=== PATIENT | female | born 1960 | race Caucasian/White ===

== ENCOUNTER → 2016-11-09 | Outpatient (CLI) | payer MEDICARE, MEDICAID ==
[~2016-11-09] MED LIST: ALEVE220 MG PO; ALLOPURINOL100 MG PO; BETASERON 0.3 M1 KIT MR; BETASERON0.3 MG SC; FUROSEMIDE 40MG40 M1 PO; JANUVIA25 MG PO; LEVAQUIN 750 M750 MG PO; LISINOPRIL10 MG PO; METOPROLOL SUCC50 M2 PO; POTASSIUM CHLO10 MEQ PO; PRAMIPEXOLE D0.75 MG PO; PROTONIX 40MG T40 MG PO; VITAMIN D50000 I1 PO; WARFARIN SODIUM5 MG PO
[2016-11-09 20:30] LABS: BUN 20 mg/dL (7-18)
[2016-11-09 21:00] LABS: GFR (ESTIMATED) 46 ML/MIN (59-)
== END ==
LOC: LAB 17:51
PROVIDERS: Internal Medicine Adolescent Medicine
DX: Z86.711 Personal history of pulmonary embolism (principal); Z87.01 Personal history of pneumonia (recurrent)

== ENCOUNTER 2016-11-12 17:14 | Inpatient (IN) | payer MEDICARE, MEDICAID ==
[~2016-11-12] VITALS: Ht 157.5 cm; Wt 145.8 kg
[2016-11-12] VITALS (12 sets, daily range): BP systolic 84–120; BP diastolic 42–96
[~2016-11-12 17:14] MED LIST changes: -ALEVE220 MG PO; -ALLOPURINOL100 MG PO; -BETASERON0.3 MG SC; -JANUVIA25 MG PO; -LEVAQUIN 750 M750 MG PO; +METOPROLOL SUCC50 M1 PO; -METOPROLOL SUCC50 M2 PO; -PROTONIX 40MG T40 MG PO; -VITAMIN D50000 I1 PO
--- OUTSIDE RECORDS SUMMARY | 2016-11-12 17:17 | External Medical Summary Rpt ---
Author Author SHENG Address Unknown Phone [email or web address] Purpose Continuity of Care Document - 09-10-2016 through 2016
--- OUTSIDE RECORDS SUMMARY | 2016-11-12 17:17 | External Medical Summary Rpt ---
Author Author SHENG Address Unknown Phone [email or web address] Purpose Continuity of Care Document - 09-10-2016 through 2016
--- OUTSIDE RECORDS SUMMARY | 2016-11-12 17:18 | External Medical Summary Rpt ---
Demographics Preferred Language Belizean Marital Status Unknown Worship Affiliation Unknown Race Unknown Ethnic Group Unknown Author Author SHENG Address Unknown Phone Immunization No patient found.
--- OUTSIDE RECORDS SUMMARY | 2016-11-12 17:18 | External Medical Summary Rpt ---
Author Author SHENG Address Unknown Phone [email or web address] Purpose Continuity of Care Document - through 2016
--- OUTSIDE RECORDS SUMMARY | 2016-11-12 17:18 | External Medical Summary Rpt ---
Author Author [employer], [employer] Organization [employer] Address Unknown Phone Unavailable Results Urea nitrogen [Mass/volume] in Serum or Plasma Observa Value Referen Units Interpr Notes Date tion ce etation Range Urea 7 - 18 mg/dL High No Nov 09 nitrogen informati 2016 [Mass/vol on in ume] in source Serum or data Plasma CREATININE Observa Value Referen Units Interpr Notes Date tion ce etation Range Creatinin 0.55 - mg/dL High No Nov 09 e 1.02 informati 2016 [Mass/vol on in ume] in source Serum or data Plasma Estimated 59- ML/MIN Low REFERENCE Nov 09 RANGE: 2016 glomerula >60 r ML/MIN/1. filtratio 73 SQUARE n rate METERSIf (GF this patient is -A merican, then multiply theresult by 1.210. INR in Blood by Coagulation assay Observa Value Referen Units Interpr Notes Date tion ce etation Range INR in 0.9 - 1.1 No High INDICATIO Nov 09 Blood by informati N 2016 Coagulati on in on assay source INR data RANGETHER APY FOR DVT, PE, ATRIAL FIB; 2.0 - 3.0PROPHY LAXIS FOR VTETHERAP Y FOR MECHANICA L HEART 2.5 - 3.5VALVE; PREVENTIO N OF SYSTEMICE MBOLISM SECONDARY TO AMI Prothromb 9.4 - SECONDS High No Nov 09 in time 11.8 informati 2016 (PT) in on in Platelet source poor data plasma by Coagulati on assay INR in Blood by Coagulation assay Observa Value Referen Units Interpr Notes Date tion ce etation Range INR in 0.9 - 1.1 No High INDICATIO Oct 28 Blood by informati N 2016 Coagulati on in 12:08 PM on assay source INR data RANGETHER APY FOR DVT, PE, ATRIAL FIB; 2.0 - 3.0PROPHY LAXIS FOR VTETHERAP Y FOR MECHANICA L HEART 2.5 - 3.5VALVE; PREVENTIO N OF SYSTEMICE MBOLISM SECONDARY TO AMI Prothromb 9.4 - SECONDS High No Oct 27 in time 11.8 informati 2017 (PT) in on in 12:08 PM Platelet source poor data plasma by Coagulati on assay Urea nitrogen [Mass/volume] in Serum or Plasma Observa Value Referen Units Interpr Notes Date tion ce etation Range Urea 7 - 18 mg/dL High No Sep 10 nitrogen informati 2016 [Mass/vol on in 10:32 AM ume] in source Serum or data Plasma CREATININE Observa Value Referen Units Interpr Notes Date tion ce etation Range Creatinin 0.55 - mg/dL Normal No Sep 9 e 1.02 informati 2016 [Mass/vol on in 10:32 AM ume] in source Serum or data Plasma Estimated 59- ML/MIN Low REFERENCE Sep 10 RANGE: 2017 glomerula >60 10:32 AM r ML/MIN/1. filtratio 73 SQUARE n rate METERSIf (GF this patient is -A merican, then multiply theresult by 1.210.
--- OUTSIDE RECORDS SUMMARY | 2016-11-12 17:18 | External Medical Summary Rpt ---
Author Author SHENG Address Unknown Phone [email or web address] Purpose Continuity of Care Document - through 2016
--- OUTSIDE RECORDS SUMMARY | 2016-11-12 17:18 | External Medical Summary Rpt ---
Demographics Preferred Language Guyanese Marital Status Unknown Caodaism Affiliation Unknown Race Unknown Ethnic Group Unknown Author Author SHENG Address Unknown Phone Immunization No patient found.
[2016-11-12] MEDS ORDERED: JANUVIA25 MG PO (18:29)
[2016-11-12 18:30] LABS: LYMPH # 0.5 K/mm3 (0.7-4.5); LYMPH % 5.8 % (10-50.0)
[2016-11-12] MEDS ORDERED: ALLOPURINOL100 MG PO (18:30)
[2016-11-12] MEDS ORDERED: VITAMIN D50000 I1 PO (18:32)
[2016-11-12] MEDS ORDERED: ALEVE220 MG PO (18:33)
[2016-11-12 18:35] LABS: HEMOGLOBIN 7.2 g/dL (12.2-16.2)
[2016-11-12 19:04] LABS: NEUTROPHILS 89 % (42-76)
[2016-11-12 20:27] LABS: ABO BLOOD TYPE O; RH BLOOD TYPE POSITIVE
[2016-11-12 20:28] LABS: ANTIHUMAN GLOB CROSSMATCH COMPAT
--- NOTE | 2016-11-12 20:57 | HISTORY AND PHYSICAL REPORT ---
Demographics: Admit date: 11/12/16 Chief complaint: Shortness of air/cough PRIMARY DIAGNOSIS: PNEUMONIA Allergies: Coded Allergies: gabapentin (From Neurontin) (04/01/15) magnesium (04/01/15) sulfamethoxazole (From Bactrim) (04/01/15) trimethoprim (From Bactrim) (04/01/15) History of present illness: History of present illness: 56-year-old white female with multiple sclerosis, morbid obesity, and mobility issues and recurrent pulmonary embolism currently on warfarin therapy, came in the office a couple days ago with increasing shortness of air and coughing. She' s been on a couple of rounds of antibiotics, chest x-ray and labs were done and were abnormal. CT scan was done of the lung showing ill-defined patchy infiltrate with possible bronchial thickening worrisome for possible neoplasm versus infection effect. she did not improve over the past couple of days and she is hospitalized for intravenous antibiotics given failure of 2 rounds of antibiotic therapy to help her shortness of air and infection with lobar pneumonia. Past medical history: Family HX Diabetes Yes CAD No Hypertension Yes Hyperlipidemia Yes Cancer No TB No Immunization HX DT/Tetanus 5-10 Years Ago Pneumonia Received In Past TB Test in last year Yes Result Negative General Angina: No UT: No Hypertension? Yes Hyperlipidemia? No CHF? No COPD? No Asthma? No Hernia? No CVA? No Seizures? No Diabetes? No UTI? No Stones? No GB Disease: Yes Hepatitis? No Sickle Cell Disease? No Cataracts? No Glaucoma? No MRSA? No TB? No Cancer? No More? Yes Additional hx: MS Past Surgical HX Previous Surgery?Y UTERINE ABLATION TOTAL HYSTERECTOMY LEFT ELBOW Current home meds: Reported Medications Sitagliptin Phosphate (Januvia 25MG) 25 MG PO DAILY-DM Allopurinol 100 MG PO DAILY ERGOCALCIFEROL (VITAMIN D2) (Vitamin D2) 50,000 IUNITS PO QTHUR Naproxen Sodium (Aleve) 220 MG PO PRN PRN PAIN Furosemide 40 MG PO DAILY #30 Lisinopril 10 MG PO DAILY #30 Metoprolol Succinate 50 MG PO DAILY #30 Warfarin Sodium 5 MG PO DAILY #30 Interferon Beta-1B/Sodium Ch (Betaseron 0.3 Mg-0.54%) 1 KIT MR QOD PRAMIPEXOLE DI-HCL (Pramipexole Dihydrochloride) 0.75 MG PO DAILY #30 Potassium Chloride (POTASSIUM CHLORIDE 10mEq CAP) 10 MEQ PO DAILY #60 Social Hx: Smoking HX Type Cigarettes Packs/day N/A Are you/the child exposed to second-hand smoke: No Alcohol Alcohol: No Hx of Drug Use Drug Use? No Patien't marital status is single Patient's support system is good Review of systems: Constitutional malaise, weakness. No: fever. Respiratory cough, shortness of breath, SOB with excertion. Cardiovascular No chest pain Gastrointestinal/Abdominal No no symptoms reported Genitourinary No: no symptoms reported. Musculoskeletal joint pain, joint swelling, muscle pain, muscle stiffness, neck pain. Neurological Yes: tingling, tremors, weakness. Exam: Lab data for last 24 hours: Laboratory Tests 11[place]12/162049: [facility] [place]OD UNIT RELEASE 11/12/160: Antibody Screen NEGATIVE, Miscellaneous Test POSITIVE 11/12/16 1800: Sodium 135 L, Potassium 4.4, Chloride 101, Carbon Dioxide 26, BUN 46 H, Creatinine 1.5 H, Estimated Creat Clear 94, Estimated GFR (MDRD) 36 L, Glucose 175 H, Calcium 8.2 L, Total Bilirubin 0.7, AST 23, ALT 24, Alkaline Phosphatase 99, Total Protein 6.6, Albumin 3.2 L, Globulin 3.4 H, Albumin/ Globulin Ratio 0.9 L, PT 38.8 H, INR 3.55 H, WBC 7.8, RBC 2.19 L, Hgb 7.2 *L , Hct 22.2 *L, MCV 101.3 H, RDW 19.2 H, Plt Count 178, MPV 8.1, Gran % 86.3 H , Gran # 6.7, Total Counted 100, Lymphocytes % 5.8 L, Monocytes % 5.4, Eosinophils % 1.9, Basophils % 0.5, Neutrophils 89 H, Band Neutrophils 1, Lymphocytes (Manual) 5 L, Lymphocytes # 0.5 L, Monocytes (Manual) 3, Monocytes # 0.4, Eosinophils # 0.2, Basophils # 0.0, Promyelocytes 2, Platelet Estimate NORMAL, Anisocytosis 2+, Macrocytosis 1+, PUBS MCHC 32.4, MCH 32.8 H, Mycoplasma pneumon IgM NON-REACTIVE Microbiology 08/11 1800 BLOOD: Anaerobic Blood Culture - RECD 11/12 1800 BLOOD: Aerobic Blood Culture - RECD 11/12 1800 BLOOD: Anaerobic Blood Culture - RECD 11/12 1800 BLOOD: Aerobic Blood Culture - RECD Admission vital signs: 1ST Vital Signs Result Date Time Pulse Ox 89 11/12 175 O2 Delivery ROOM AIR 11/12 175 O2 Flow Rate 2 11/12 1750 B/P 106/48 11/12 1808 Temp 98.2 11/12 1808 Pulse 74 11/12 180 Resp 18 11/12 180 Additional information: Exam is compromised by patient's morbid obesity. She is pleasant and talkative, cranial nerves are clear. Heart rate regular without murmurs. Lungs have clear bases, right side has rhonchi but no crackles or wheezing. Abdomen is obese, soft. She has obesity-related edema but no pitting edema or skin breakdown Plan: Problem List 1. Pneumonia, lobar 2. Anemia 3. Pulmonary mass Plan: patient with clear infiltrate with worrisome features. Admit for broad-spectrum antibiotic IV coverage, pulmonary toilet. Hopefully we can get a sputum culture. Anemia noted above in lab section. Questionable etiology. Guaiac stools. Transfuse given shortness of air and significant anemia values. at 2056
[2016-11-13] VITALS (18 sets, daily range): BP systolic 89–129; BP diastolic 36–68
[2016-11-13 06:52] LABS: LYMPH # 0.6 K/mm3 (0.7-4.5); LYMPH % 7.5 % (10-50.0)
--- NOTE | 2016-11-13 07:57 | ACUTE CARE PROGRESS NOTE (QUA) ---
Progress Notes Subjective Date 11/13/16 Time 0756 Note Feels slightly better after blood transfusion yesterday. Less shortness of air. Able to cough up a fairly substantial sputum specimen yesterday which is being processed in the lab. Alert. Pleasant. Lungs are clear with rhonchi in the middle lung field. Heart rate regular. Objective Findings Last VS-Temp:97.9 B/P:114/57 Pulse:92 Resp:20 SaO2:92 OXYGEN Last weight lbs:321 oz:8 K.832 Method:Stated Assessment/Plan Problem List 1. Pneumonia, lobar 2. Anemia 3. Pulmonary mass Patient condition Improving Plan: continue current care, check chest x-ray tomorrow. Await sputum culture. This inpt stay is expected to cross 2 MNs from start of care Yes at 0757
--- NOTE | 2016-11-13 14:31 | PHARMACY CLINIC NOTE ---
See Addendum Patient Demographics Patient Demographics Admission date: 11/12/16 Date: 11/13/16 Time: 1431 Allergies Coded Allergies: gabapentin (From Neurontin) (04/01/15) magnesium (04/01/15) sulfamethoxazole (From Bactrim) (04/01/15) trimethoprim (From Bactrim) (04/01/15) HEIGHT- FT: 5 IN: 2.00 K.832 VTE General Information Labs: Laboratory Tests 11/13 11/12 0555 1800 Coagulation PT (9.4 - 11.8 SECONDS) 38.8 H INR (0.9 - 1.1) 3.55 H Hematology Hgb (12.2 - 16.2 g/dL) 9.0 L 7.2 *L Hct (37.0 - 47.0 %) 26.2 L 22.2 *L Plt Count (142 - 424 K/mm3) 147 178 Disclaimer The following section includes nursing documentation that has been pulled in for pharmacy review. Patient's VTE score: 3 Patient's VTE Risk: LOW RISK Clinical trial participant? No VTE prophylaxis NQF [id number] VTE prophylaxis ordered? Yes Type of prophylaxis/treatment: CHALINO at 1431
[2016-11-13] MEDS ORDERED: BETASERON0.3 MG SC (14:40)
[2016-11-13 15:29] LABS: STOOL OCCULT BLOOD POSITIVE (NEG)
[2016-11-13 20:04] LABS: STOOL OCCULT BLOOD POSITIVE (NEG)
[2016-11-14] VITALS (8 sets, daily range): BP systolic 110–128; BP diastolic 51–69
[2016-11-14 06:15] LABS: STOOL OCCULT BLOOD POSITIVE (NEG)
--- NOTE | 2016-11-14 07:47 | RADIOLOGY REPORT PS360 ---
CHEST(2 VIEWS-NOT PORTABLE) HISTORY: Follow-up pneumonia f/u pneumonia from ct scan ORDERING PHYSICIAN: Dre Montgomery MD PATIENT AGE: 56 years COMPARISON: 10/28/2016 chest x-ray and 11/10/2016 CT scan FINDINGS: Mild cardiomegaly without failure. ASD occlusion device noted. There remains increased interstitial markings in the right upper lobe overall not significantly changed. Increased markings are present also in the right lower lobe and may be due to developing pneumonia or atelectasis. The left lung is clear. IMPRESSION: 1. Persistent interstitial changes in the right upper lobe suggesting underlying inflammation/pneumonia with some increase interstitial changes in the right lower lung zone. 2. Cardiomegaly
--- NOTE | 2016-11-14 08:19 | ACUTE CARE PROGRESS NOTE (QUA) ---
Progress Notes Subjective Date 11/14/16 Time 0816 Note Overall patient is feeling pretty good and reports that she's feeling better with better breathing. Labs reviewed, blood counts stable. Unfortunately fecal occult blood testing is positive x3 samples. Exam reveals lungs with rhonchi as previously noted, heart rate regular. A slight increase in her peripheral edema today. Patient is pleasant alert Objective Findings Last VS-Temp:98.4 B/P:121/58 Pulse:85 Resp:18 SaO2:93 ROOM AIR Last weight lbs:321 oz:8 K.832 Method:Stated Assessment/Plan Problem List 1. Pneumonia, lobar 2. Anemia 3. Pulmonary mass 4. Positive occult stool blood test Patient condition Improving Plan: several complex problem for this patient: 1. Pneumonia-improving. Continue intravenous levofloxacin therapy. 2. anemia-responded to transfusion-warfarin has been stopped and we will watch carefully. I am very concerned about her warfarin and NSAID use and now positive fecal occult blood testing with anemia. Surgical consultation to evaluate for EGD/colonoscopy. 3. History of pulmonary embolism-one time event-associated with orthopedic fracture and repair. I think she can safely stop her warfarin at this point especially given her GI bleeding and need for workup of this problem. 4. Slight increased peripheral edema. IV Lasix today. This inpt stay is expected to cross 2 MNs from start of care Yes at 0819
--- NOTE | 2016-11-14 10:42 | SURGEON PROGRESS NOTE ---
Subjective data Subjective data: SHEREEN SOLORIO is a 56 F .Patient denies complaint of nausea and vomitting.She reports her last pain level as 0 on a 0-10 pain scale. Patient feels much better. Some bowel movment. Hungry. Assessment findings Assessment Exam General appearance: normal appearance, alert ABD: soft, no tenderness Patient plan Plan: Advance diet Additional data: Full liquids today. Repeat imaging tomorrow. at 1042
--- NOTE | 2016-11-14 11:01 | CONSULT NOTE ---
Standard Demographics Patient Demo Date of Consultation: 11/14/16 Referring Provider: Dre Montgomery MD Reason for Consultation: anemia PRIMARY DIAGNOSIS: PNEUMONIA Allergies: Coded Allergies: gabapentin (From Neurontin) (04/01/15) magnesium (04/01/15) sulfamethoxazole (From Bactrim) (04/01/15) trimethoprim (From Bactrim) (04/01/15) History of Present Illness Chief Complaint: Shortness of air History of Present Illness: Patient is a 56-year-old white female from [place] with history of multiple sclerosis, morbid obesity, DVT with recurrent pulmonary embolism on chronic warfarin anticoagulation therapy admitted a couple of days ago due to increasing shortness of air and pneumonia. Evaluation of blood work at the time of admission revealed appreciable anemia with hemoglobin of 7.2 and hematocrit of 22.2 percent. Patient was transfused. She is undergone stool guaiac which was positive 3. She states that her first bowel movement upon admission was somewhat dark. Denies any history of ulcer disease. She states that she may have had a colonoscopy many years ago in [place]. Denies rectal bleeding. Past Medical History Reports: hypertension, obesity. Denies: peptic ulcer disease. Surgical History Previous Surgery?Y UTERINE ABLATION TOTAL HYSTERECTOMY LEFT ELBOW Allergies Coded Allergies: gabapentin (From Neurontin) (04/01/15) magnesium (04/01/15) sulfamethoxazole (From Bactrim) (04/01/15) trimethoprim (From Bactrim) (04/01/15) Medications: Reported Medications Sitagliptin Phosphate (Januvia 25MG) 25 MG PO DAILY-DM Allopurinol 100 MG PO DAILY ERGOCALCIFEROL (VITAMIN D2) (Vitamin D2) 50,000 IUNITS PO QTHUR Naproxen Sodium (Aleve) 220 MG PO PRN PRN PAIN Interferon Beta-1B (Betaseron) 0.3 MG SC QOD #14 MG Furosemide 40 MG PO DAILY #30 Lisinopril 10 MG PO DAILY #30 Metoprolol Succinate 50 MG PO DAILY #30 Warfarin Sodium 5 MG PO DAILY #30 PRAMIPEXOLE DI-HCL (Pramipexole Dihydrochloride) 0.75 MG PO DAILY #30 Potassium Chloride (POTASSIUM CHLORIDE 10mEq CAP) 10 MEQ PO DAILY #60 Smoking Hx Tobacco: Yes Smoker: Former Smoker Type: Cigarettes Packs/day: N/A Are you/the child exposed to second-hand smoke: No Alcohol Alcohol: No Hx of Drug Use Drug Use? No Review of Systems Constitutional No: chills. Skin No: contusions. Immune/allergy No: anaphalaxis. Eyes No: vision loss. ENT No: hearing loss. Respiratory Positive for: shortness of air. Cardiovascular No: chest pain. GI Positive for: melena. No: abdomen, hematochezia. (female) No: hematuria. Musculoskeletal No: joint pain. Heme No: bruising. Endocrine No: cold intolerance. Neurological No: change in LOC. Physical Exam Exam General appearance no acute distress Respiratory decreased breath sounds Cardiovascular normal heart sounds Abdomen non-tender Plan Plan: Patient's warfarin has been discontinued. Given her history consistent with melana upper gastrointestinal blood loss source may be a possibility. Would tentatively plan for EGD and a couple of days as initial investigation. In the interim would plan to treat with proton pump inhibitors regardless. Colonoscopy would be indicated at some point pending the findings on upper endoscopy. at 1101
[2016-11-15 04:30] VITALS: BP 114/56
[2016-11-15 07:04] LABS: HEMOGLOBIN 8.8 g/dL (12.2-16.2); LYMPH # 0.6 K/mm3 (0.7-4.5); LYMPH % 7.7 % (10-50.0)
--- NOTE | 2016-11-15 07:08 | ACUTE CARE PROGRESS NOTE (QUA) ---
Progress Notes Subjective Date 11/15/16 Time 0708 Note Overall patient feels better, no complaints through the night. Lungs are clear. Abdomen soft, heart rate regular. Patient in good spirits. Objective Findings Last VS-Temp:97.6 B/P:114/56 Pulse:75 Resp:18 SaO2:90 ROOM AIR Last weight lbs:321 oz:8 K.832 Method:Stated Assessment/Plan Problem List 1. Pneumonia, lobar 2. Anemia 3. Pulmonary mass 4. Positive occult stool blood test Patient condition Improving, await surgical consultation for EGD. Overall from a lung standpoint patient improved. This inpt stay is expected to cross 2 MNs from start of care Yes at 0708
[2016-11-15 07:15] LABS: STOOL OCCULT BLOOD POSITIVE (NEG)
--- NOTE | 2016-11-15 07:56 | SURGEON PROGRESS NOTE ---
Subjective data Subjective data: SHEREEN SOLORIO is a 56 F .Patient denies complaint of nausea and vomitting.She reports her last pain level as 0 on a 0-10 pain scale. Patient is without complaints. No clinical bleeding. Assessment findings Assessment Exam General appearance: normal appearance ABD: soft Patient plan Plan: tentativel y plan EGD tomorrow at 0750
[2016-11-15 08:00] VITALS: BP 112/61
--- NOTE | 2016-11-15 08:03 | ACUTE CARE PROGRESS NOTE (QUA) ---
Progress Notes Subjective Date 11/15/16 Time 0802 Assessment/Plan Problem List 1. Pneumonia, lobar 2. Anemia 3. Pulmonary mass 4. Positive occult stool blood test This inpt stay is expected to cross 2 MNs from start of care Yes Antibiotic Stewardship (2) Current Culture Results Microbiology 11/13 0128 SPUTUM: Organism ID (Sequencing 2)(GONZALO) - CAN Cancelled: INCLUDED WITH SPUTUM C/S 11/13 109 SPUTUM: Sputum Culture - COMP 11/13 109 SPUTUM: Gram Stain - COMP 11/12 1800 BLOOD: Anaerobic Blood Culture - RECD 11/12 1800 BLOOD: Aerobic Blood Culture - RECD Infxn that will respond? Yes Right drug,dose,and route? Yes More targeted antbx? No at 0802
[2016-11-15 12:00] VITALS: BP 112/70
[2016-11-15 16:00] VITALS: BP 107/60
[2016-11-15 20:06] VITALS: BP 125/55
[2016-11-15 20:30] VITALS: BP 125/55
[2016-11-16] VITALS (11 sets, daily range): BP systolic 94–135; BP diastolic 42–87
[2016-11-16 06:52] LABS: HEMOGLOBIN 8.6 g/dL (12.2-16.2); LYMPH # 0.4 K/mm3 (0.7-4.5); LYMPH % 6.3 % (10-50.0)
--- NOTE | 2016-11-16 07:23 | ACUTE CARE PROGRESS NOTE (QUA) ---
Progress Notes Subjective Date 11/16/16 Time 0721 Note Patient overall feels better, states she she is doing "pretty good." Lungs are clear, good air movement. Patient's pleasant, alert. Moves well. INR this morning 1.45. Objective Findings Last VS-Temp:97.4 B/P:135/87 Pulse:69 Resp:18 SaO2:92 ROOM AIR Last weight lbs:321 oz:8 K.832 Method:Stated Assessment/Plan Problem List 1. Pneumonia, lobar 2. Anemia 3. Pulmonary mass 4. Positive occult stool blood test Patient condition Improving Plan: continue current care, hopefully EGD can be done today. Possible discharge after this procedure for outpatient colonoscopy. We will continue to hold warfarin. Pneumonia is improving nicely. Discharge home today, hopefully, on by mouth Levaquin. This inpt stay is expected to cross 2 MNs from start of care Yes Antibiotic Stewardship (2) Infxn that will respond? Yes Right drug,dose,and route? Yes More targeted antbx? No at 0722
--- NOTE | 2016-11-16 12:05 | Operative Note ---
Endoscopy Report Date: 11/16/16 Preoperative diagnosis: Anemia, gastrointestinal blood loss Procedure Type of procedure: Esophagogastroduodenoscopy with biopsy Indications: 56-year-old obese female on chronic warfarin anticoagulation therapy for prior history of pulmonary embolism. Admitted with pneumonia and found to be the make [facility] blood work with Hemoccult positive stool 3. Surgery was consult for upper endoscopy. Once her INR normalized plan was for upper endoscopy. Consent was obtained and patient was taken to same-day surgery endoscopy procedure room. She was positioned in a lateral decubitus position. Adequate intravenous sedation was achieved with anesthesia titration of propofol. Olympus endoscope was inserted via the oropharynx. Esophagus appeared normal. Stomach was cannulated and insufflated. She had some diffuse moderate gastritis with several punctate areas which had shown evidence of minor oozing but no active bleeding. Retroflexion revealed a small hiatal hernia. Pylorus was somewhat stenotic and the endoscope was advanced through the pylorus. The just past the pylorus within the duodenal bulb there was a moderately large ulcer with exudate in the base. No evidence of any adherent clot or visible vessel. Endoscope was advanced into the distal duodenum which appeared unremarkable. Endoscope was withdrawn into the [facility] in and antral mucosal biopsy was obtained for CLOtest for H. pylori. Endoscope was withdrawn. Findings 1. Duodenal Ulcer 2. Gastritis Follow-Up Follow-Up: Would continue high-dose therapeutic proton pump inhibitors and limit nonsteroidal anti-inflammatory drugs. Treat H. pylori if positive. Will tentatively plan for a follow-up upper endoscopy in approximately 8-10 weeks along with possible colonoscopy for completeness. at 1204
--- NOTE | 2016-11-16 12:05 | Operative Note ---
Endoscopy Report Date: 11/16/16 Preoperative diagnosis: Anemia, gastrointestinal blood loss Procedure Type of procedure: Esophagogastroduodenoscopy with biopsy Indications: 56-year-old obese female on chronic warfarin anticoagulation therapy for prior history of pulmonary embolism. Admitted with pneumonia and found to be the make [facility] blood work with Hemoccult positive stool 3. Surgery was consult for upper endoscopy. Once her INR normalized plan was for upper endoscopy. Consent was obtained and patient was taken to same-day surgery endoscopy procedure room. She was positioned in a lateral decubitus position. Adequate intravenous sedation was achieved with anesthesia titration of propofol. Olympus endoscope was inserted via the oropharynx. Esophagus appeared normal. Stomach was cannulated and insufflated. She had some diffuse moderate gastritis with several punctate areas which had shown evidence of minor oozing but no active bleeding. Retroflexion revealed a small hiatal hernia. Pylorus was somewhat stenotic and the endoscope was advanced through the pylorus. The just past the pylorus within the duodenal bulb there was a moderately large ulcer with exudate in the base. No evidence of any adherent clot or visible vessel. Endoscope was advanced into the distal duodenum which appeared unremarkable. Endoscope was withdrawn into the [facility] in and antral mucosal biopsy was obtained for CLOtest for H. pylori. Endoscope was withdrawn. Findings 1. Duodenal Ulcer 2. Gastritis Follow-Up Follow-Up: Would continue high-dose therapeutic proton pump inhibitors and limit nonsteroidal anti-inflammatory drugs. Treat H. pylori if positive. Will tentatively plan for a follow-up upper endoscopy in approximately 8-10 weeks along with possible colonoscopy for completeness. at 1207
--- NOTE | 2016-11-16 12:19 | Anesthesia Record ---
Anesthesia Record Part I Total IV fluids: 250 EBL (ml): 0 Urine Output: 0 B/P: 116/56 % SaO2: 92 Pulse: 76 Resps: 18 Temp: 98.2 Patient is: Nasal O2 Stable to PACU at: 1209 at 1219
[2016-11-16] MEDS ORDERED: LEVAQUIN 750 M750 MG PO (13:54)
[2016-11-16] MEDS ORDERED: PROTONIX 40MG T40 MG PO (13:54)
--- NOTE | 2016-11-16 14:05 | DISCHARGE SUMMARY STANDARD ---
Demographics Admit date: 11/12/16 Discharge date: 11/16/16 History of present illness History of present illness 56-year-old white female with multiple sclerosis, morbid obesity, and mobility issues and recurrent pulmonary embolism currently on warfarin therapy, came in the office a couple days ago with increasing shortness of air and coughing. She' s been on a couple of rounds of antibiotics, chest x-ray and labs were done and were abnormal. CT scan was done of the lung showing ill-defined patchy infiltrate with possible bronchial thickening worrisome for possible neoplasm versus infection effect. she did not improve over the past couple of days and she is hospitalized for intravenous antibiotics given failure of 2 rounds of antibiotic therapy to help her shortness of air and infection with lobar pneumonia. Hospital Course Hospital Course: Patient was admitted to acute care for IV antibiotics and further evaluation. She was started on Levaquin and Zosyn. Her hemoglobin was found to be low at 7 on admission with an INR of 3.5. Her Coumadin was held and she was transfused with 2 units of packed red blood cells. Surgery was consulted for evaluation. Occult blood in stool was positive x3. Her hemoglobin has remained stable since her transfusion. INR normalized today and patient was taken for EGD which showed a moderate duodenal ulcer and gastritis with no active bleeding. See endoscopy report for complete details. Patient is tolerating oral intake well. Shortness of breath and cough improved on IV antibiotics. Discharge home on high-dose PPI and Levaquin therapy. See medication reconciliation for complete list Complete blood count and complete metabolic panel on Tuesday. Follow-up with myself in the office at that time. Continue to hold Lasix due to elevated creatinine which has improved throughout her stay. No NSAIDs. FU with Dr. Whitfield in one week. Discharge diagnoses Problem List 1. Pneumonia, lobar 2. Anemia 3. Pulmonary mass 4. Positive occult stool blood test Medications Medications: Discharge meds are as noted. Follow up Follow up in office in: 3 DAYS with: KAYLI MONTEIRO APRN at [phone]
== END 2016-11-16 15:05 | disposition home or self-care (01) | DRG 194 ==
LOC: 2ND 17:14
PROVIDERS: Internal Medicine Adolescent Medicine; Surgery
PROC: 0DB68ZX Excision of Stomach, Via Natural or Artificial Opening Endoscopic, Diagnostic (ICD-10-PCS; principal; 2016-11-16 12:00)
DX: J18.9 Pneumonia, unspecified organism (principal); I27.82 Chronic pulmonary embolism; K26.9 Duodenal ulcer, unspecified as acute or chronic, without hemorrhage or perforation; I10 Essential (primary) hypertension; Z79.01 Long term (current) use of anticoagulants; G35 Multiple sclerosis; R91.8 Other nonspecific abnormal finding of lung field; D64.9 Anemia, unspecified; K29.70 Gastritis, unspecified, without bleeding
CPT/HCPCS: G0328; J2543; P9016

== ENCOUNTER 2016-11-18 10:51 | Inpatient (IN) | payer MEDICARE, MEDICAID ==
[~2016-11-18] VITALS: Ht 157.5 cm; Wt 151.0 kg
[~2016-11-18 10:51] MED LIST changes: +ALEVE220 MG PO; +ALLOPURINOL100 MG PO; +BETASERON0.3 MG SC; +JANUVIA25 MG PO; +LEVAQUIN 750 M750 MG PO; +PROTONIX 40MG T40 MG PO; +VITAMIN D50000 I1 PO
--- OUTSIDE RECORDS SUMMARY | 2016-11-18 10:54 | External Medical Summary Rpt ---
Author Author , SHENG PATRICIO Address Unknown Phone [email or web address] Care Team Providers Care Coal Passer Name Role Phone [facility] Unavailable Unavailable [facility] # Unavailable Unavailable [id number], [facility] # [id number] Purpose Continuity of Care Document - 2010 through 2016 Problems Code Diagnosis DOS Provider Status 7905 OTHER 09-21-2010 CT MEDICAL NONSPECIFIC SERV ABNORMAL [facility] SERUM ENZYME LEVELS 7934 NONSPECIFIC 09-21-2010 CT MEDICAL ABN SERV FINDING RAD [facility] & OTH EXAM GI TRACT [address] MEDICAL PAIN RIGHT SERV UPPER [facility] QUADRANT S42.402A UNSP FRACTURE OF LOWER END OF LEFT HUMERUS, INIT FOR CLOS FX T14.8 OTHER INJURY OF UNSPECIFIED BODY REGION Medications Na ND Rx Da Fi Fi Am Da Di Ph RX Ph St me C No te ll ll ou ys ag ar # ys at rm s nt no ma ic us Or Da si cy ia de te s n re d FU 63 10 10 0 90 90 71 AH Ac RO 30 -0 -0 .0 L- 37 ME ti SE 40 4- 4- 00 MA 55 D ve [place] 62 20 20 RT 6 AD DE 51 11 11 NA 0 PH N 40 AR MA MG CY # TA BL 10 ET 05 91 ME 68 05 08 1 90 45 WA 71 AH Ac TO 64 -0 -1 .0 L- 18 ME ti LA 50 4- 8- 00 MA 27 D ve OL 19 20 20 RT 6 AD OL 05 11 11 NA 9 PH N TA AR RT MA RA CY TE # 50 10 05 MG 91 TA B Results Labs Lab Lab Date Result Refere Interp Status Commen Order Detail nces retati t Range on Hemoglobin.gastrointestinal [Presence] in Stool (11-15-2016 05:20) Hemoglo POSITIV NEG complet bin.gas 017 E ed trointe 05:20 stinal [Presen ce] in Stool --1st specime n Hemoglobin.gastrointestinal [Presence] in Stool (11-14-2016 05:30) Hemoglo POSITIV NEG complet bin.gas 017 E ed trointe 05:30 stinal [Presen ce] in Stool --1st specime n Hemoglobin.gastrointestinal [Presence] in Stool (11-13-2016 19:40) Hemoglo POSITIV NEG complet bin.gas 017 E ed trointe 19:40 stinal [Presen ce] in Stool --1st specime n Hemoglobin.gastrointestinal [Presence] in Stool (11-13-2016 15:10) Hemoglo POSITIV NEG complet bin.gas 017 E ed trointe 15:10 stinal [Presen ce] in Stool --1st specime n Blood product special preparation [Type] (11-13-2016 01:50) Blood BLOOD complet product 017 UNIT ed 01:50 RELEASE special prepara tion [Type] Blood product special preparation [Type] (11-12-2016 20:50) Blood BLOOD complet product 017 UNIT ed 20:50 RELEASE special prepara tion [Type] Blood type & Crossmatch panel in Blood (11-12-2016 19:20) Blood NEGATIV NEGATIV complet group 017 E E ed antibod 19:20 y screen [Presen ce] in Serum or Plasma Rh POSITIV complet [Type] 017 E ed in 19:20 Blood ABO O complet group 017 ed [Type] 19:20 in Blood Blood type & Crossmatch panel in Blood (11-12-2016 19:20) Major COMPAT complet crossma 017 ed tch 19:20 [interp retatio n] Major COMPAT complet crossma 017 ed tch 19:20 [interp retatio n] by Immedia te spin Mycoplasma pneumoniae IgM Ab [Presence] in Serum by Immunoassay (11-12-2016 18:00) Mycopla NON-MEHDI NONREAC complet sma 017 CTIVE TIVE ed pneumon 18:00 iae IgM Ab [Presen ce] in Serum by Immunoa ssay Differential panel, method unspecified - (11-12-2016 18:00) Anisocy 2+ complet tosis 017 ed [Presen 18:00 ce] in Blood LYMPH 5 % 10% - Low complet 017 50% ed 18:00 Macrocy 1+ complet peggy 017 ed [Presen 18:00 ce] in Blood Platele NORMAL complet ts 017 ed [Presen 18:00 ce] in Blood by Light microsc opy Encounters Encounter Start End Date Code Location Performer Type Date OFFICE 67228 [facility] 1 1 MEDICAL T VISIT SERV 25 [facility] MINUTES OFFICE 07911 [facility] 1 1 MEDICAL ION SERV NEW/ESTAB [facility] PATIENT 60 MIN
--- OUTSIDE RECORDS SUMMARY | 2016-11-18 10:54 | External Medical Summary Rpt ---
Demographics Preferred Language Sudanese Marital Status Unknown Mosque Affiliation Unknown Race Unknown Ethnic Group Unknown Author Author SHENG Address Unknown Phone Immunization No patient found.
--- OUTSIDE RECORDS SUMMARY | 2016-11-18 10:54 | External Medical Summary Rpt ---
Author Author , SHENG PATRICIO Address Unknown Phone [email or web address] Care Team Providers Care Infusion Pharmacist Name Role Phone [facility] [place] [facility] Unavailable Unavailable [facility] # Unavailable Unavailable [id number], [facility] # [id number] Purpose Continuity of Care Document - 2010 through 2016 Problems Code Diagnosis DOS Provider Status 7905 OTHER 09-21-2010 [place] [facility] NON[facility]IFIC [facility] ABNORMAL [facility] SERUM ENZYME LEVELS 7934 NONSPECIFIC 09-21-2010 [place] [facility] ABN SERV FINDING RAD [facility] & OTH EXAM GI TRACT 94213 ABDOMINAL 2010 [place] [facility] PA[facility] RIGHT SERV UPPER [facility] QUADRANT [...] 4- 4- 00 MA 55 D ve [place] 62 20 20 RT 6 AD DE 51 11 11 NA 0 PH N 40 AR MA MG CY # TA BL 10 ET 05 91 ME 68 05 08 1 90 45 WA 71 AH Ac TO 64 -0 -1 .0 L- 18 ME ti [place] 50 4- 8- 00 MA 27 D [...] Date Code Location Performer Type Date OFFICE 37737 [facility] 1 1 MEDICAL T VISIT SERV 25 [facility] MINUTES OFFICE 96203 [facility] 1 1 MEDICAL ION SERV NEW/ESTAB [facility] PATIENT 60 MIN
--- OUTSIDE RECORDS SUMMARY | 2016-11-18 10:54 | External Medical Summary Rpt ---
Author Author , SHENG PATRICIO Address Unknown Phone [email or web address] Care Team Providers Care Quality Control Auditor Name Role Phone [place] [facility] [place] [facility] [place] [facility] Unavailable Unavailable [facility] # Unavailable Unavailable [id number], [facility] # [id number] Purpose Continuity of Care Document - 2010 through 2016 Problems Code Diagnosis DOS Provider Status 7905 OTHER 09-21-2010 [place] [facility] [place] [place] ABNORMAL [facility] SERUM ENZYME LEVELS 7934 NONSPECIFIC 09-21-2010 [place] [facility] FINDING RAD [facility] & OTH EXAM GI TRACT 74880 ABDOMINAL 2010 [place] [facility] RIGHT [facility] UPPER [facility] QUADRANT Medications Na ND Rx Da Fi Fi Am Da Di Ph RX Ph St me C No te ll ll ou ys ag ar # ys at rm s nt no ma ic us Or Da si cy ia de te s n re d FU 63 10 10 0 90 90 WA 71 AH Ac RO 30 -0 -0 .0 L- 37 ME ti SE 40 4- 4- 00 MA 55 D ve FL 62 20 20 RT 6 AD DE 51 11 11 NA 0 PH N 40 AR MA MG CY # TA BL 10 ET 05 91 ME 68 05 08 1 90 45 WA 71 AH Ac TO 64 -0 -1 .0 L- 18 ME ti [place] 50 4- 8- 00 MA 27 D ve OL 19 20 20 RT 6 AD OL 05 11 11 NA 9 PH N TA AR RT MA RA CY TE # 50 10 05 MG 91 TA B Encounters Encounter Start End Date Code Location Performer Type Date OFFICE 34950 [facility] 1 1 MEDICAL T VISIT SERV 25 [facility] MINUTES OFFICE [address] [place] [facility] 1 1 MEDICAL ION SERV NEW/ESTAB [facility] PATIENT 60 MIN
--- OUTSIDE RECORDS SUMMARY | 2016-11-18 10:54 | External Medical Summary Rpt ---
Demographics Preferred Language Bangladeshi Marital Status Unknown Judaism Affiliation Unknown Race Unknown Ethnic Group Unknown Author Author SHENG Address Unknown Phone Immunization No patient found.
--- OUTSIDE RECORDS SUMMARY | 2016-11-18 10:54 | External Medical Summary Rpt ---
Author Author , SHENG PATRICIO Address Unknown Phone .[email or web address] Care Team Providers Care Control Officer Name Role Phone [place] [facility] Unavailable Un[facility] [place] [facility] [place] [facility] Unavailable Unavailable [facility] # Unavailable Unavailable [id number], [facility] # [id number] Purpose Continuity of Care Document - 2010 through 2016 Problems Code Diagnosis DOS Provider Status 7905 OTHER 09-21-2010 [place] [facility] NON[place]IFIC [place] ABNORMAL [facility] SERUM ENZYME LEVELS 7934 NONSPECIFIC 09-21-2010 [place] [facility] [place] FINDING RAD [facility] & OTH EXAM GI TRACT 33556 ABDOMINAL 2010 [place] [facility] [place] RIGHT [place] UPPER [facility] QUADRANT [...] 4- 4- 00 MA 55 D ve WA 62 20 20 RT 6 AD DE 51 11 11 NA 0 PH N 40 AR MA MG CY # TA BL 10 ET 05 91 ME 68 05 08 1 90 45 WA 71 AH Ac TO 64 -0 -1 .0 L- 18 ME ti [place] 50 4- 8- 00 MA 27 D ve OL 19 20 20 RT 6 AD OL 05 11 11 NA 9 PH N TA AR RT MA RA CY TE # 50 10 05 MG 91 TA B Encounters Encounter Start End Date Code Location Performer Type Date OFFICE 34912 [facility] 1 1 MEDICAL T VISIT SERV 25 [facility] MINUTES OFFICE [address] [place] [facility] 1 1 MEDICAL ION SERV NEW/ESTAB [facility] PATIENT 60 MIN
--- OUTSIDE RECORDS SUMMARY | 2016-11-18 10:56 | External Medical Summary Rpt ---
Author Author [employer], [employer] Organization [employer] Address Unknown Phone Unavailable Results Basic metabolic panel in Blood Observa Value Referen Units Interpr Notes Date tion ce etation Range Urea 7 - 18 mg/dL No No Nov 16 nitrogen informati informati 2016 6:40 [Mass/vol on in on in AM ume] in source source Serum or data data Plasma Calcium 8.5 - mg/dL Low No Nov 16 [Mass/vol 10.1 informati 2016 6:40 ume] in on in AM Serum or source Plasma data Chloride 98 - 107 mmoL/L Normal No Nov 16 [Moles/vo informati 2016 6:40 lume] in on in AM Serum or source Plasma data Carbon 21.0 - mmoL/L Normal No Nov 16 dioxide, 32.0 informati 2016 6:40 total on in AM [Moles/vo source lume] in data Serum or Plasma Creatinin 0.55 - mg/dL High No Nov 16 e 1.02 informati 2016 6:40 [Mass/vol on in AM ume] in source Serum or data Plasma Creatinin 50 - 200 ML/MIN Normal No Nov 16 e renal informati 2017 6:40 clearance on in AM source predicted data by Cockcroft -Gault formula Estimated 59- ML/MIN Low REFERENCE Nov 16 RANGE: 2017 6:40 glomerula >60 AM r ML/MIN/1. filtratio 73 SQUARE n rate METERSIf (GF this patient is -A merican, then multiply theresult by 1.210. Glucose 74 - 106 mg/dL High No Nov 16 [Mass/vol informati 2016 6:40 ume] in on in AM Serum or source Plasma data Potassium 3.5 - 5.1 mmoL/L Normal No Nov 16 informati 2016 6:40 [Moles/vo on in AM lume] in source Serum or data Plasma Sodium 136 - 145 mmoL/L Low No Nov 16 [Moles/vo informati 2016 6:40 lume] in on in AM Serum or source Plasma data INR in Blood by Coagulation assay Observa Value Referen Units Interpr Notes Date tion ce etation Range IS PATIENT ON ANTICOAGULANTS? N PTT RESULTS MUST BE CALLED IF PT ON HEPARIN!!! Y INR in 0.9 - 1.1 No High INDICATIO Nov 16 Blood by informati N 2016 6:40 Coagulati on in AM on assay source INR data RANGETHER APY FOR DVT, PE, ATRIAL FIB; 2.0 - 3.0PROPHY LAXIS FOR VTETHERAP Y FOR MECHANICA L HEART 2.5 - 3.5VALVE; PREVENTIO N OF SYSTEMICE MBOLISM SECONDARY TO AMI Prothromb 9.4 - SECONDS High No Nov 16 in time 11.8 informati 2016 6:40 (PT) in on in AM Platelet source poor data plasma by Coagulati on assay CBC W Auto Differential panel in Blood Observa Value Referen Units Interpr Notes Date tion ce etation Range Basophils 0 - 0.2 K/MM3 Normal No Nov 16 informati 2017 6:40 [#/volume on in AM ] in source Blood by data Automated count Basophils 0.1 - 2.0 % Normal No Nov 15 /100 informati 2017 6:40 leukocyte on in AM s in source Blood by data Automated count Eosinophi 0.0 - 0.4 K/mm3 Normal No Nov 16 ls informati 2016 6:40 [#/volume on in AM ] in source Blood by data Automated count Eosinophi 0.1 - % Normal No Nov 16 ls/100 12.0 informati 2016 6:40 leukocyte on in AM s in source Blood by data Automated count Granulocy 1.8 - 7.8 K/mm3 Normal No Nov 16 peggy informati 2016 6:40 [#/volume on in AM ] in source Blood by data Automated count Granulocy 37.0 - % High No Nov 16 peggy/100 80.0 informati 2016 6:40 leukocyte on in AM s in source Blood by data Automated count Hematocri 37.0 - % Low Nov 16 t [Volume 47.0 informati 2016 6:40 on in AM Fraction] source of Blood data Hemoglobi 12.2 - g/dL Low No Nov 16 n 16.2 informati 2016 6:40 [Mass/vol on in AM ume] in source Blood data Lymphocyt 0.7 - 4.5 K/mm3 Low No Nov 16 es informati 2016 6:40 [#/volume on in AM ] in source Unspecifi data ed specimen by Automated count Lymphocyt 10 - 50.0 % Low No Nov 16 es informati 2016 6:40 [#/volume on in AM ] in source Unspecifi data ed specimen by Automated count Erythrocy 27 - 31.2 pg High No Nov 15 te mean informati 2017 6:40 corpuscul on in AM ar source hemoglobi data n [Entitic mass] Erythrocy 31.8 - g/dl Normal No Nov 16 te mean 35.4 informati 2017 6:40 corpuscul on in AM ar source hemoglobi data n concentra tion [Mass/vol ume] by Automated count Erythrocy 82.2 - fl High No Nov 16 te mean 97.8 informati 2017 6:40 corpuscul on in AM ar volume source [Entitic data volume] by Automated count Monocytes 0.1 - 1.0 K/mm3 Normal No Nov 15 informati 2017 6:40 [#/volume on in AM ] in source Blood by data Automated count Monocytes 1.7 - 9.3 % Normal No Nov 15 /100 informati 2017 6:40 leukocyte on in AM s in source Blood by data Automated count Platelet 7.4 - fl Normal Nov 16 mean 10.4 informati 2017 6:40 volume on in AM [Entitic source volume] data in Blood by Automated count Platelets 142 - 424 K/mm3 Low No Nov 16 informati 2017 6:40 [#/volume on in AM ] in source Blood data Erythrocy 4.2 - 5.4 M/mm3 Low No Nov 15 peggy informati 2017 6:40 [#/volume on in AM ] in source Amniotic data fluid Erythrocy 11.5 - % High No Nov 16 te 17.5 informati 2017 6:40 distribut on in AM ion width source [Entitic data volume] by Automated count Leukocyte 4.8 - K/MM3 Normal No Nov 15 s 10.8 informati 2017 6:40 [#/volume on in AM ] in source Blood data Comprehensive metabolic 2000 panel in Serum or Plasma Observa Value Referen Units Interpr Notes Date tion ce etation Range Albumin/G 1.1 - 1.8 No Low No Nov 14 lobulin informati informati 2017 6:26 [Mass on in on in AM ratio] in source source Serum or data data Plasma Albumin 3.4 - 5.0 gm/dL Low No Nov 15 [Mass/vol informati 2017 6:26 ume] in on in AM Serum or source Plasma data Alkaline 46 - 116 U/L Normal No Nov 15 phosphata informati 2017 6:26 se on in AM [Enzymati source c data activity/ volume] in Serum or Plasma Bilirubin 0.2 - 1.0 mg/dL High No Nov 15 .total informati 2017 6:26 [Mass/vol on in AM ume] in source Serum or data Plasma Urea 7 - 18 mg/dL High No Nov 15 nitrogen informati 2017 6:26 [Mass/vol on in AM ume] in source Serum or data Plasma Calcium 8.5 - mg/dL Low No Nov 15 [Mass/vol 10.1 informati 2016 6:26 ume] in on in AM Serum or source Plasma data Chloride 98 - 107 mmoL/L Normal No Nov 15 [Moles/vo informati 2016 6:26 lume] in on in AM Serum or source Plasma data Carbon 21.0 - mmoL/L Normal No Nov 15 dioxide, 32.0 informati 2017 6:26 total on in AM [Moles/vo source lume] in data Serum or Plasma Creatinin 0.55 - mg/dL High No Nov 15 e 1.02 informati 2016 6:26 [Mass/vol on in AM ume] in source Serum or data Plasma Creatinin 50 - 200 ML/MIN Normal No Nov 15 e renal informati 2016 6:26 clearance on in AM source predicted data by Cockcroft -Gault formula Estimated 59- ML/MIN Low REFERENCE Nov 15 RANGE: 2017 6:26 glomerula >60 AM r ML/MIN/1. filtratio 73 SQUARE n rate METERSIf (GF this patient is -A merican, then multiply theresult by 1.210. Globulin 1.3 - 3.2 gm/dL High No Nov 15 [Mass/vol informati 2017 6:26 ume] in on in AM Serum source data Glucose 74 - 106 mg/dL High No Nov 15 [Mass/vol informati 2017 6:26 ume] in on in AM Serum or source Plasma data Potassium 3.5 - 5.1 mmoL/L Normal No Nov 15 informati 2017 6:26 [Moles/vo on in AM lume] in source Serum or data Plasma Sodium 136 - 145 mmoL/L Normal No Nov 15 [Moles/vo informati 2016 6:26 lume] in on in AM Serum or source Plasma data Aspartate 15 - 37 U/L Normal No Nov 15 informati 2016 6:26 aminotran on in AM sferase source [Enzymati data c activity/ volume] in Serum or Plasma Alanine 12 - 78 U/L Normal No Nov 15 aminotran informati 2016 6:26 sferase on in AM [Enzymati source c data activity/ volume] in Serum or Plasma Protein 6.4 - 8.2 gm/dL Normal No Nov 14 [Mass/vol informati 2016 6:26 ume] in on in AM Serum or source Plasma data CBC W Auto Differential panel in Blood Observa Value Referen Units Interpr Notes Date tion ce etation Range Basophils 0 - 0.2 K/MM3 Normal No Nov 15 informati 2016 6:26 [#/volume on in AM ] in source Blood by data Automated count Basophils 0.1 - 2.0 % Normal No Nov 15 informati 2016 6:26 leukocyte on in AM s in source Blood by data Automated count Eosinophi 0.0 - 0.4 K/mm3 Normal No Nov 15 ls informati 2016 6:26 [#/volume on in AM ] in source Blood by data Automated count Eosinophi 0.1 - % Normal Nov 15 ls/100 12.0 informati 2016 6:26 leukocyte on in AM s in source Blood by data Automated count Granulocy 1.8 - 7.8 K/mm3 Normal No Nov 15 peggy informati 2016 6:26 [#/volume on in AM ] in source Blood by data Automated count Granulocy 37.0 - % High Nov 15 peggy/100 80.0 informati 2016 6:26 leukocyte on in AM s in source Blood by data Automated count Hematocri 37.0 - % Low Nov 15 t [Volume 47.0 informati 2016 6:26 on in AM Fraction] source of Blood data Hemoglobi 12.2 - g/dL Low Nov 15 n 16.2 informati 2016 6:26 [Mass/vol on in AM ume] in source Blood data Lymphocyt 0.7 - 4.5 K/mm3 Low No Nov 15 es ati 2016 6:26 [#/volume on in AM ] in source Unspecifi data ed specimen by Automated count Lymphocyt 10 - 50.0 % Low No Nov 14 es informati 2016 6:26 [#/volume on in AM ] in source Unspecifi data ed specimen by Automated count Erythrocy 27 - 31.2 pg High No Nov 14 te mean informati 2016 6:26 corpuscul on in AM ar source hemoglobi data n [Entitic mass] Erythrocy 31.8 - g/dl Normal No Nov 15 te mean 35.4 informati 2016 6:26 corpuscul on in AM ar source hemoglobi data n concentra tion [Mass/vol ume] by Automated count Erythrocy 82.2 - fl High No Nov 15 te mean 97.8 informati 2017 6:26 corpuscul on in AM ar volume source [Entitic data volume] by Automated count Monocytes 0.1 - 1.0 K/mm3 Normal No Nov 14 informati 2016 6:26 [#/volume on in AM ] in source Blood by data Automated count Monocytes 1.7 - 9.3 % Normal No Nov 15 /100 informati 2017 6:26 leukocyte on in AM s in source Blood by data Automated count Platelet 7.4 - fl Normal No Nov 15 mean 10.4 informati 2017 6:26 volume on in AM [Entitic source volume] data in Blood by Automated count Platelets 142 - 424 K/mm3 Normal No Nov 14 informati 2017 6:26 [#/volume on in AM ] in source Blood data Erythrocy 4.2 - 5.4 M/mm3 Low No Nov 14 peggy informati 2017 6:26 [#/volume on in AM ] in source Amniotic data fluid Erythrocy 11.5 - % High No Nov 15 te 17.5 informati 2016 6:26 distribut on in AM ion width source [Entitic data volume] by Automated count Leukocyte 4.8 - K/MM3 Normal No Nov 15 s 10.8 informati 2016 6:26 [#/volume on in AM ] in source Blood data INR in Blood by Coagulation assay Observa Value Referen Units Interpr Notes Date tion ce etation Range IS PATIENT ON ANTICOAGULANTS? N PTT RESULTS MUST BE CALLED IF PT ON HEPARIN!!! Y INR in 0.9 - 1.1 No High INDICATIO Nov 15 Blood by informati N 2016 6:26 Coagulati on in AM on assay source INR data RANGETHER APY FOR DVT, PE, ATRIAL FIB; 2.0 - 3.0PROPHY LAXIS FOR VTETHERAP Y FOR MECHANICA L HEART 2.5 - 3.5VALVE; PREVENTIO N OF SYSTEMICE MBOLISM SECONDARY TO AMI Prothromb 9.4 - SECONDS High No Nov 15 in time 11.8 informati 2016 6:26 (PT) in on in AM Platelet source poor data plasma by Coagulati on assay Hemoglobin.gastrointestinal [Presence] in Stool Observa Value Referen Units Interpr Notes Date tion ce etation Range Collected by nurse? Y Hold specimen in OE? N Hemoglo POSITIV NEG No No No Nov 15 [email or web address] E informa informa informa 2016 trointe tion in tion in tion in 5:20 AM stinal source source source [Presen data data data ce] in Stool --1st specime n Hemoglobin.gastrointestinal [Presence] in Stool Observa Value Referen Units Interpr Notes Date tion ce etation Range Collected by nurse? Y Hold specimen in OE? N Hemoglo POSITIV NEG No No No Nov 14 [email or web address] E informa informa informa 2016 trointe tion in tion in tion in 5:30 AM stinal source source source [Presen data data data ce] in Stool --1st specime n Hemoglobin.gastrointestinal [Presence] in Stool Observa Value Referen Units Interpr Notes Date tion ce etation Range Collected by nurse? Y Hold specimen in OE? N Hemoglo POSITIV NEG No No No Nov 13 [email or web address] E informa informa informa 2016 trointe tion in tion in tion in 7:40 PM stinal source source source [Presen data data data ce] in Stool --1st specime n Hemoglobin.gastrointestinal [Presence] in Stool Observa Value Referen Units Interpr Notes Date tion ce etation Range Collected by nurse? Y Hold specimen in OE? N Hemoglo POSITIV NEG No No No Nov 13 [email or web address] E informa informa informa 2016 trointe tion in tion in tion in 3:10 PM stinal source source source [Presen data data data ce] in Stool --1st specime n CBC W Auto Differential panel in Blood Observa Value Referen Units Interpr Notes Date tion ce etation Range Basophils 0 - 0.2 K/MM3 Normal No Nov 13 informati 2016 5:55 [#/volume on in AM ] in source Blood by data Automated count Basophils 0.1 - 2.0 % Normal No Nov 12 /100 informati 2016 5:55 leukocyte on in AM s in source Blood by data Automated count Eosinophi 0.0 - 0.4 K/mm3 Normal No Nov 13 ls informati 2016 5:55 [#/volume on in AM ] in source Blood by data Automated count Eosinophi 0.1 - % Normal No Nov 13 ls/100 12.0 informati 2016 5:55 leukocyte on in AM s in source Blood by data Automated count Granulocy 1.8 - 7.8 K/mm3 Normal No Nov 13 peggy informati 2017 5:55 [#/volume on in AM ] in source Blood by data Automated count Granulocy 37.0 - % High No Nov 13 peggy/100 80.0 informati 2016 5:55 leukocyte on in AM s in source Blood by data Automated count Hematocri 37.0 - % Low No Nov 13 t [Volume 47.0 informati 2016 5:55 on in AM Fraction] source of Blood data Hemoglobi 12.2 - g/dL Low No Nov 13 n 16.2 informati 2016 5:55 [Mass/vol on in AM ume] in source Blood data Lymphocyt 0.7 - 4.5 K/mm3 Low No Nov 13 es informati 2017 5:55 [#/volume on in AM ] in source Unspecifi data ed specimen by Automated count Lymphocyt 10 - 50.0 % Low No Nov 13 es informati 2016 5:55 [#/volume on in AM ] in source Unspecifi data ed specimen by Automated count Erythrocy 27 - 31.2 pg High No Nov 13 te mean informati 2016 5:55 corpuscul on in AM ar source hemoglobi data n [Entitic mass] Erythrocy 31.8 - g/dl Normal No Nov 13 te mean 35.4 informati 2017 5:55 corpuscul on in AM ar source hemoglobi data n concentra tion [Mass/vol ume] by Automated count Erythrocy 82.2 - fl High No Nov 13 te mean 97.8 informati 2016 5:55 corpuscul on in AM ar volume source [Entitic data volume] by Automated count Monocytes 0.1 - 1.0 K/mm3 Normal No Nov 13 informati 2016 5:55 [#/volume on in AM ] in source Blood by data Automated count Monocytes 1.7 - 9.3 % Normal No Nov 13 /100 informati 2016 5:55 leukocyte on in AM s in source Blood by data Automated count Platelet 7.4 - fl Normal No Nov 13 mean 10.4 informati 2016 5:55 volume on in AM [Entitic source volume] data in Blood by Automated count Platelets 142 - 424 K/mm3 Normal No Nov 13 informati 2016 5:55 [#/volume on in AM ] in source Blood data Erythrocy 4.2 - 5.4 M/mm3 Low No Nov 13 peggy informati 2016 5:55 [#/volume on in AM ] in source Amniotic data fluid Erythrocy 11.5 - % High No Nov 13 te 17.5 informati 2016 5:55 distribut on in AM ion width source [Entitic data volume] by Automated count Leukocyte 4.8 - K/MM3 Normal No Nov 13 s 10.8 informati 2016 5:55 [#/volume on in AM ] in source Blood data Basic metabolic panel in Blood Observa Value Referen Units Interpr Notes Date tion ce etation Range Urea 7 - 18 mg/dL High No Nov 13 nitrogen informati 2016 5:55 [Mass/vol on in AM ume] in source Serum or data Plasma Calcium 8.5 - mg/dL Low No Nov 13 [Mass/vol 10.1 informati 2016 5:55 ume] in on in AM Serum or source Plasma data Chloride 98 - 107 mmoL/L Normal No Nov 13 [Moles/vo informati 2016 5:55 lume] in on in AM Serum or source Plasma data Carbon 21.0 - mmoL/L Normal No Nov 13 dioxide, 32.0 informati 2016 5:55 total on in AM [Moles/vo source lume] in data Serum or Plasma Creatinin 0.55 - mg/dL High No Nov 13 e 1.02 informati 2016 5:55 [Mass/vol on in AM ume] in source Serum or data Plasma Creatinin 50 - 200 ML/MIN Normal No Nov 13 e renal informati 2016 5:55 clearance on in AM source predicted data by Cockcroft -Gault formula Estimated 59- ML/MIN Low REFERENCE Nov 13 RANGE: 2016 5:55 glomerula >60 AM r ML/MIN/1. filtratio 73 SQUARE n rate METERSIf (GF this patient is -A merican, then multiply theresult by 1.210. Glucose 74 - 106 mg/dL High No Nov 13 [Mass/vol informati 2016 5:55 ume] in on in AM Serum or source Plasma data Potassium 3.5 - 5.1 mmoL/L Normal No Nov 13 informati 2016 5:55 [Moles/vo on in AM lume] in source Serum or data Plasma Sodium 136 - 145 mmoL/L Low No Nov 13 [Moles/vo informati 2016 5:55 lume] in on in AM Serum or source Plasma data Blood product special preparation [Type] Observa Value Referen Units Interpr Notes Date tion ce etation Range Blood BLOOD No No No BLOOD Nov 13 product UNIT informa informa informa UNIT # 2017 RELEASE tion in in in : W0382 1:50 AM special source source source 17 data data data [id number] prepara RELEASE tion D [Type] 7 [id number] rks,Deon nO POSITIV E Blood product special preparation [Type] Observa Value Referen Units Interpr Notes Date ti ce etation Range Blood BLOOD No No No BLOOD Nov 12 product UNIT informa informa informa UNIT # 2017 RELEASE tion in in in : W0382 8:50 PM special source source source 17 data data data [id number] prepara RELEASE tion D [Type] 7 [id number] rks,[place]on nO POSITIV E Blood type & Crossmatch panel in Blood Observa Value Referen Units Interpr Notes Date ti ce etation Range Hold? N Transfuse now? y Blood NEGATIV NEGATIV No No No Nov 12 group E E informa informa informa 2016 antibod tion in tion in on in 7:20 PM y source source source screen data data data [Presen ce] in Serum or Plasma Rh POSITIV No No No No Nov 12 [Type] E informa informa informa informa 2016 in tion in tion in tion in tion in 7:20 PM Blood source source source source data data data data ABO O No No No No Nov 12 group informa informa informa informa 2017 [Type] tion in tion in tion in tion in 7:20 PM in source source source source Blood data data data data Blood type & Crossmatch panel in Blood Observa Value Referen Units Interpr Notes Date tion ce etation Range Hold? N Transfuse now? y Major COMPAT No No No No Nov 12 crossma informa informa informa informa 2017 tch tion in tion in tion in tion in 7:20 PM [interp source source source source retatio data data data data n] Major COMPAT No No No No Nov 12 crossma informa informa informa informa 2017 tch tion in tion in tion in tion in 7:20 PM [interp source source source source retatio data data data data n] by Immedia te spin Blood type & Crossmatch panel in Blood Observa Value Referen Units Interpr Notes Date tion ce etation Range Hold? N Transfuse now? y Major COMPAT No No No No Nov 12 crossma informa informa informa informa 2017 tch tion in tion in tion in tion in 7:20 PM [interp source source source source retatio data data data data n] Major COMPAT No No No No Nov 12 crossma informa informa informa informa 2017 tch tion in tion in tion in tion in 7:20 PM [interp source source source source retatio data data data data n] by Immedia te spin Mycoplasma pneumoniae IgM Ab [Presence] in Serum by Immunoassay Observa Value Referen Units Interpr Notes Date tion ce etation Range Mycopla NON-MEHDI NONREAC No No No Nov 12 sma CTIVE TIVE informa informa informa 2017 pneumon tion in tion in tion in 6:00 PM iae IgM source source source Ab data data data [Presen ce] in Serum by Immunoa ssay CBC W Auto Differential panel in Blood Observa Value Referen Units Interpr Notes Date tion ce etation Range Basophils 0 - 0.2 K/MM3 Normal No Nov 12 informati 2016 6:00 [#/volume on in PM ] in source Blood by data Automated count Basophils 0.1 - 2.0 % Normal No Nov 12 informati 2016 6:00 leukocyte on in PM s in source Blood by data Automated count Eosinophi 0.0 - 0.4 K/mm3 Normal No Nov 12 ls informati 2017 6:00 [#/volume on in PM ] in source Blood by data Automated count Eosinophi 0.1 - % Normal No Nov 12 ls/100 12.0 informati 2017 6:00 leukocyte on in PM s in source Blood by data Automated count Granulocy 1.8 - 7.8 K/mm3 Normal No Nov 12 peggy informati 2017 6:00 [#/volume on in PM ] in source Blood by data Automated count Granulocy 37.0 - % High No Nov 12 peggy/100 80.0 informati 2016 6:00 leukocyte on in PM s in source Blood by data Automated count Hematocri 37.0 - % Low alert Nov 12 t [Volume 47.0 2017 6:00 CRITICAL PM Fraction] RESULTS of Blood RESU LTS CALLED TO: JOSEFAB 11/12/16 [address] Hemoglobi 12.2 - g/dL Low alert Nov 12 n 16.2 2016 6:00 [Mass/vol CRITICAL PM ume] in RESULTS Blood RESU LTS CALLED TO:CHRIS MB 7 [address] Lymphocyt 0.7 - 4.5 K/mm3 Low No Nov 12 es informati 2016 6:00 [#/volume on in PM ] in source Unspecifi data ed specimen by Automated count Lymphocyt 10 - 50.0 % Low No Nov 12 es informati 2016 6:00 [#/volume on in PM ] in source Unspecifi data ed specimen by Automated count Erythrocy 27 - 31.2 pg High No Nov 12 te mean informati 2017 6:00 corpuscul on in PM ar source hemoglobi data n [Entitic mass] Erythrocy 31.8 - g/dl Normal No Nov 12 te mean 35.4 informati 2017 6:00 corpuscul on in PM ar source hemoglobi data n concentra tion [Mass/vol ume] by Automated count Erythrocy 82.2 - fl High No Nov 12 te mean 97.8 informati 2016 6:00 corpuscul on in PM ar volume source [Entitic data volume] by Automated count Monocytes 0.1 - 1.0 K/mm3 Normal Nov 122016 6:00 [#/volume on in PM ] in source Blood by data Automated count Monocytes 1.7 - 9.3 % Normal Nov 12 informati 2016 6:00 leukocyte on in PM s in source Blood by data Automated count Platelet 7.4 - fl Normal Nov 12 mean 10.4 ati 2016 6:00 volume on in PM [Entitic source volume] data in Blood by Automated count Platelets 142 - 424 K/mm3 No Nov 12 informati informati 2016 6:00 [#/volume on in on in PM ] in source source Blood data data Erythrocy 4.2 - 5.4 M/mm3 Low Nov 12 peggy informati 2016 6:00 [#/volume on in PM ] in source Amniotic data fluid Erythrocy 11.5 - % High Nov 12 te 17.5 informati 2016 6:00 distribut on in PM ion width source [Entitic data volume] by Automated count Leukocyte 4.8 - K/MM3 Normal Nov 12 s 10.8 ati 2016 6:00 [#/volume on in PM ] in source Blood data Differential panel, method unspecified - Observa Value Referen Units Interpr Notes Date tion ce etation Range Anisocy 2+ No No No No Nov 12 tosis informa informa informa informa 2016 [Presen tion in tion in tion in tion in 6:00 PM ce] in source source source source Blood data data data data Neutrophi 0 - 8 % Normal Nov 12 ls.band ati 2016 6:00 form/100 on in PM leukocyte source s in data Blood by Automated count LYMPH 5 10 - 50 % Low Nov 122016 tion in 6:00 PM source data Macrocy 1+ No No No No Nov 12 peggy informa informa informa informa 2016 [Presen tion in tion in tion in tion in 6:00 PM ce] in source source source source Blood data data data data Monocytes 2 - 9 % Normal No Nov 12 informati 2016 6:00 leukocyte on in PM s in source Blood by data Automated count Platele NORMAL No No No Nov 12 ts informa informa informa informa 2016 [Presen tion in tion in tion in tion in 6:00 PM ce] in source source source source Blood data data data data by Light microsc opy Neutrophi 42 - 76 % High No Nov 12 ls informati 2017 6:00 [#/volume on in PM ] in source Blood by data Automated count Promyeloc No % No No Nov 12 ytes/100 informati informati informati 2017 6:00 leukocyte on in on in on in PM s in source source source Blood data data data Cells No #CELLS No No Nov 12 Counted informati informati informati 2017 6:00 Total [#] on in on in on in PM in Blood source source source data data data Comprehensive metabolic 2000 panel in Serum or Plasma Observa Value Referen Units Interpr Notes Date tion ce etation Range Albumin/G 1.1 - 1.8 No Low No Nov 12 lobulin informati informati 2017 6:00 [Mass on in on in PM ratio] in source source Serum or data data Plasma Albumin 3.4 - 5.0 gm/dL Low No Nov 12 [Mass/vol informati 2017 6:00 ume] in on in PM Serum or source Plasma data Alkaline 46 - 116 U/L Normal No Nov 12 phosphata informati 2017 6:00 se on in PM [Enzymati source c data activity/ volume] in Serum or Plasma Bilirubin 0.2 - 1.0 mg/dL Normal No Nov 12 .total informati 2017 6:00 [Mass/vol on in PM ume] in source Serum or data Plasma Urea 7 - 18 mg/dL High No Nov 12 nitrogen informati 2017 6:00 [Mass/vol on in PM ume] in source Serum or data Plasma Calcium 8.5 - mg/dL Low No Nov 12 [Mass/vol 10.1 informati 2017 6:00 ume] in on in PM Serum or source Plasma data Chloride 98 - 107 mmoL/L Normal No Nov 12 [Moles/vo informati 2017 6:00 lume] in on in PM Serum or source Plasma data Carbon 21.0 - mmoL/L Normal No Nov 12 dioxide, 32.0 informati 2017 6:00 total on in PM [Moles/vo source lume] in data Serum or Plasma Creatinin 0.55 - mg/dL High No Nov 12 e 1.02 informati 2017 6:00 [Mass/vol on in PM ume] in source Serum or data Plasma Creatinin 50 - 200 ML/MIN Normal No Nov 12 e renal informati 2016 6:00 clearance on in PM source predicted data by Cockcroft -Gault formula Estimated 59- ML/MIN Low REFERENCE Nov 12 RANGE: 2016 6:00 glomerula >60 PM r ML/MIN/1. filtratio 73 SQUARE n rate METERSIf (GF this patient is -A merican, then multiply theresult by 1.210. Globulin 1.3 - 3.2 gm/dL High No Nov 12 [Mass/vol informati 2016 6:00 ume] in on in PM Serum source data Glucose 74 - 106 mg/dL High No Nov 12 [Mass/vol informati 2016 6:00 ume] in on in PM Serum or source Plasma data Potassium 3.5 - 5.1 mmoL/L Normal No Nov 12 informati 2016 6:00 [Moles/vo on in PM lume] in source Serum or data Plasma Sodium 136 - 145 mmoL/L Low No Nov 12 [Moles/vo informati 2016 6:00 lume] in on in PM Serum or source Plasma data Aspartate 15 - 37 U/L Normal No Nov 12 informati 2016 6:00 aminotran on in PM sferase source [Enzymati data c activity/ volume] in Serum or Plasma Alanine 12 - 78 U/L Normal No Nov 12 aminotran informati 2016 6:00 sferase on in PM [Enzymati source c data activity/ volume] in Serum or Plasma Protein 6.4 - 8.2 gm/dL Normal No Nov 12 [Mass/vol informati 2016 6:00 ume] in on in PM Serum or source Plasma data INR in Blood by Coagulation assay Observa Value Referen Units Interpr Notes Date tion ce etation Range IS PATIENT ON ANTICOAGULANTS? Y INR in 0.9 - 1.1 No High INDICATIO Nov 12 Blood by informati N 2016 6:00 Coagulati on in PM on assay source INR data RANGETHER APY FOR DVT, PE, ATRIAL FIB; 2.0 - 3.0PROPHY LAXIS FOR VTETHERAP Y FOR MECHANICA L HEART 2.5 - 3.5VALVE; PREVENTIO N OF SYSTEMICE MBOLISM SECONDARY TO AMI Prothromb 9.4 - SECONDS High No Nov 12 in time 11.8 informati 2016 6:00 (PT) in on in PM Platelet source poor data plasma by [...] 59- ML/MIN Low REFERENCE Nov 09 RANGE: 2017 glomerula >60 r ML/MIN/1. filtratio 73 SQUARE n rate METERSIf (GF this patient is -A merican, then multiply theresult by 1.210. INR in Blood by Coagulation assay Observa Value Referen Units Interpr Notes Date ti ce etation Range INR in 0.9 - [...] Observa Value Referen Units Interpr Notes Date ti etation Range INR in 0.9 - 1.1 No High INDICATIO Oct 28 Blood by informati N 2016 Coagulati on in 12:08 PM on assay source INR data RANGETHER APY FOR DVT, PE, ATRIAL FIB; 2.0 - 3.0PROPHY LAXIS FOR VTETHERAP Y FOR MECHANICA L HEART 2.5 - 3.5VALVE; PREVENTIO N OF SYSTEMICE MBOLISM SECONDARY TO AMI Prothromb 9.4 - SECONDS High No Oct 28 in time 11.8 informati 2016 (PT) in on in 12:08 PM Platelet source poor data plasma by Coagulati on assay Urea nitrogen [Mass/volume] in Serum or Plasma Observa Value Referen Units Interpr Notes Date ti ce etation Range Urea 7 - 18 mg/dL High No Sep 10 nitrogen informati 2016 [Mass/vol on in 10:32 AM ume] in source Serum or data Plasma CREATININE Observa Value Referen Units Interpr Notes Date tion ce etation Range Creatinin 0.55 - mg/dL Normal No Sep 10 e 1.02 informati 2016 [Mass/vol on in 10:32 AM ume] in source Serum or data Plasma Estimated 59- ML/MIN Low REFERENCE Sep 10 RANGE: 2016 glomerula >60 10:32 AM r ML/MIN/1. filtratio 73 SQUARE n rate METERSIf (GF this patient is -A merican, then multiply theresult by 1.210.
--- OUTSIDE RECORDS SUMMARY | 2016-11-18 10:56 | External Medical Summary Rpt ---
[...] 37.0 - % High No Nov 13 pegyg/100 80.0 informati 2016 5:55 leukocyte on in [...] source source source 17 data data data [id number] prepara RELEASE tion D [Type] 7 0150Spa rks,Deon nO POSITIV E Blood product special preparation [Type] Observa Value Referen Units Interpr Notes Date ti ce etation Range Blood BLOOD No No No BLOOD Nov 12 product UNIT informa informa informa UNIT # 2017 RELEASE tion in in in : [id number] 8:50 PM special source source source 17 data data data [id number] prepara RELEASE tion D [Type] 7 2050Spa [...]
[2016-11-18 12:09] VITALS: BP 106/56
[2016-11-18 12:16] VITALS: BP 106/56
[2016-11-18 12:41] LABS: ARTERIAL PO2 64.5 MMHG (80-100)
[2016-11-18 12:42] LABS: ALLEN'S TEST ACCEPTABLE; ARTERIAL ABE -5.6 MMOL/L (-2.4-+2.3); ARTERIAL TCO2 19.2 MMOL/L (23-27); OXYGEN ROOM AIR
[2016-11-18 13:19] LABS: ALLEN'S TEST ACCEPTABLE; ARTERIAL ABE -5.6 MMOL/L (-2.4-+2.3); ARTERIAL PO2 64.5 MMHG (80-100); ARTERIAL TCO2 19.2 MMOL/L (23-27); OXYGEN ROOM AIR
[2016-11-18 13:22] LABS: HEMOGLOBIN 8.7 g/dL (12.2-16.2); LYMPH # 0.5 K/mm3 (0.7-4.5); LYMPH % 8.2 % (10-50.0)
[2016-11-18 13:49] LABS: NEUTROPHILS 86 % (42-76)
[2016-11-18 15:53] VITALS: BP 105/64
--- NOTE | 2016-11-18 17:03 | RADIOLOGY REPORT PS360 ---
CHEST PORTABLE-PICC PLACEMENT CLINICAL INDICATION: PICC LINE INSERTION ORDERING PHYSICIAN: Dre Montgomery MD PATIENT AGE: 56 years COMPARISON: 11/14/2016 FINDINGS: Left upper rib PICC line has been inserted. The tip is in the region of the proximal superior vena cava in satisfactory position. There remains interstitial infiltrate in the right upper lobe. A nodular opacity is noted in the right upper lobe inferiorly 14 mm with an additional 7 mm opacity in the right midlung laterally consistent with a granuloma. There is mild cardiomegaly. IMPRESSION: 1. Good position of PICC line. 2. Persistent right upper lobe infiltrate with new nodular opacity overlying the right upper lobe inferiorly
--- NOTE | 2016-11-18 19:06 | RADIOLOGY REPORT PS360 ---
CT CHEST W/O CONTRAST HISTORY: Pneumonia, shortness of air PNEUMONIA ORDERING PHYSICIAN: Dre Montgomery MD PATIENT AGE: 56 years TECHNIQUE: Helical acquisition obtained without contrast. Axial, sagittal, and coronal reformatted images are generated and reviewed. COMPARISON: 11/10/2016 FINDINGS: There are coronary artery calcifications present. A septal occlusion device is noted between the right left atrium. Chronic interstitial infiltrate once again noted involving the right upper lobe. This is not significantly changed. There is a calcified granuloma in the right upper lobe laterally. There is a new small right pleural effusion. There remains mild mediastinal and right hilar adenopathy unchanged. The left lung is clear. There is a PICC line present from left subclavian approach with the tip in the region of the superior vena cava.. Recent chest x-ray suggested a nodule in the right upper lobe which is not identified on the chest CT may been due to overlying artifact.. Upper abdominal images show mild distention of the gallbladder was suggestion of some mild gallbladder wall thickening. IMPRESSION: 1. No change in the interstitial pneumonitis in the right upper lobe with mild bronchial thickening and right hilar adenopathy. 2. New small right pleural effusion 3. Distended gallbladder with questionable gallbladder wall thickening
[2016-11-18 19:30] VITALS: BP 85/47
[2016-11-18 19:52] VITALS: BP 85/47
[2016-11-18 23:34] VITALS: BP 97/42
[2016-11-19] VITALS (7 sets, daily range): BP systolic 91–117; BP diastolic 32–67
[2016-11-19 06:37] LABS: HEMOGLOBIN 8.5 g/dL (12.2-16.2); LYMPH # 0.5 K/mm3 (0.7-4.5); LYMPH % 8.4 % (10-50.0)
--- NOTE | 2016-11-19 07:43 | ACUTE CARE PROGRESS NOTE (QUA) ---
Progress Notes Subjective Date 11/19/16 Time 0741 Note Overall patient feels a little better since admission. I reviewed her studies with her, showing worsening nodular opacity on the CT scan done without contrast-indicative of worsening pneumonia with failed outpatient therapy. Gallbladder distention is also noted. VQ scan for PE is pending this morning. Lungs have good air movement. Rhonchi and crackles as previously noted. Abdomen soft, nontender. Objective Findings Last VS-Temp:97.7 B/P:94/52 Pulse:85 Resp:18 SaO2:95 OXYGEN Last weight lbs:333 oz:5 K.188 Method:Bed Scales Assessment/Plan Problem List 1. Pneumonia, lobar 2. Pulmonary mass 3. Dyspnea Patient condition check VQ scan today. Continue dual coverage for Pseudomonas risk given failure of outpatient therapy. Check gallbladder ultrasound given distention. This inpt stay is expected to cross 2 MNs from start of care Yes at 0743
--- NOTE | 2016-11-19 07:48 | PHARMACY CLINIC NOTE ---
Patient Demographics Patient Demographics Admission date: 11/18/16 Date: 11/19/16 Time: 0747 Allergies Coded Allergies: gabapentin (From Neurontin) (04/01/15) magnesium (04/01/15) sulfamethoxazole (From Bactrim) (04/01/15) trimethoprim (From Bactrim) (04/01/15) HEIGHT- FT: 5 IN: 2.00 K.188 VTE General Information Labs: Laboratory Tests 11/19 11/18 0605 1255 Hematology Hgb (12.2 - 16.2 g/dL) 8.5 L 8.7 L Hct (37.0 - 47.0 %) 24.4 L 26.2 L Plt Count (142 - 424 K/mm3) 92 L 110 L Disclaimer The following section includes nursing documentation that has been pulled in for pharmacy review. Patient's VTE score: 3 Patient's VTE Risk: LOW RISK Clinical trial participant? No VTE prophylaxis NQF [id number] VTE prophylaxis ordered? Yes Type of prophylaxis/treatment: CHALINO at 0747
--- NOTE | 2016-11-19 11:10 | RADIOLOGY REPORT PS360 ---
US GALLBLADDER (ABD LTD) HISTORY: distended gallbladder on CT scan ORDERING PHYSICIAN: Dre Montgomery MD PATIENT AGE: 56 years COMPARISON: None FINDINGS: PANCREAS: Unremarkable. No obvious mass or abnormal fluid collection. No ductal dilatation LIVER: No focal liver lesions demonstrated. Homogeneous echogenicity. No intrahepatic biliary ductal dilatation evident RIGHT KIDNEY: Unremarkable. Normal size and echogenicity. No hydronephrosis GALLBLADDER: The gallbladder is distended measuring 13 x 5 cm. No gallbladder wall thickening, gallstones, or biliary dilatation. No pericholecystic fluid. Incidental note made of a small right pleural effusion IMPRESSION: 1. Distended gallbladder. 2. Small right pleural effusion
--- NOTE | 2016-11-19 14:30 | RADIOLOGY REPORT PS360 ---
NUC LUNG VENT PERFUSION HISTORY: Shortness of air, pneumonia PNEUMONIA ORDERING PHYSICIAN: Dre Montgomery MD PATIENT AGE: 56 years COMPARISON: Radiograph of 11/19/2016 DOSE: 37.1 mCi technetium DTPA inhaled 8.08 mCi technetium MAA IV FINDINGS: There is normal perfusion with no defects apparent.. There is some clumping of the radiopharmaceutical centrally on the ventilation images. IMPRESSION: No evidence of pulmonary embolus, within normal limits
--- NOTE | 2016-11-19 14:32 | RADIOLOGY REPORT PS360 ---
CHEST(2 VIEWS-NOT PORTABLE) HISTORY: PNEUMONIA, SOA ORDERING PHYSICIAN: Dre Montgomery MD PATIENT AGE: 56 years COMPARISON: None available FINDINGS: There are low lung volumes. There is mild prominence of the cardiac silhouette no evidence of CHF. Septal occlusion device noted over the right heart. PICC line is present from left upper extremity with the tip in the region superior vena cava. Prominence of the interstitium once again noted in the right upper lobe. Small right pleural effusion is developing. Granuloma is noted in the right lower lobe. IMPRESSION: 1. No change right upper lobe interstitial disease. 2. Small right pleural effusion
[2016-11-20] VITALS (8 sets, daily range): BP systolic 108–120; BP diastolic 52–70
--- NOTE | 2016-11-20 08:41 | ACUTE CARE PROGRESS NOTE (QUA) ---
Progress Notes Subjective Date 11/20/16 Time 0840 Note Overall patient feels somewhat better. Does note that she has some increased pedal edema. Lungs are clearer on the LEFT side continued right-sided crackles., abdomen soft. Objective Findings Last VS-Temp:97.6 B/P:115/52 Pulse:87 Resp:20 SaO2:93 OXYGEN Last weight lbs:333 oz:5 K.190 Method:Bed Scales Assessment/Plan Problem List 1. Pneumonia, lobar 2. Pulmonary mass 3. Dyspnea Patient condition Improving Plan: continue current care, VQ scan was reassuringly negative for pulmonary embolism. Continue IV therapy for failed outpatient therapy/progressive pneumonia. This seems to be improving. I do think patient would benefit from skilled care for another 10 days of IV antibiotics. This inpt stay is expected to cross 2 MNs from start of care Yes at 0841
[2016-11-21] VITALS (8 sets, daily range): BP systolic 90–122; BP diastolic 57–65
[2016-11-21 04:39] LABS: HEMOGLOBIN 8.7 g/dL (12.2-16.2); LYMPH # 0.6 K/mm3 (0.7-4.5); LYMPH % 6.4 % (10-50.0)
[2016-11-21 05:01] LABS: NEUTROPHILS 82 % (42-76)
--- NOTE | 2016-11-21 08:25 | ACUTE CARE PROGRESS NOTE (QUA) ---
Progress Notes Subjective Date 11/21/16 Time 0823 Note Patient had some dyspnea episodes to the night, but feels a little better this morning. No chest pain. Edema is improved after Lasix injection yesterday. Has had some lower blood pressures through the park attendant hours. Alert. Sitting up in bed. Lungs are clear, rhonchi continue to be noted. Edema noted but obesity makes exam difficult. Pulse rate regular. Objective Findings Last VS-Temp:97.9 B/P:90/60 Pulse:83 Resp:22 SaO2:94 OXYGEN Last weight lbs:333 oz:0 K.046 Method:Floor Scales Assessment/Plan Problem List 1. Pneumonia, lobar 2. Pulmonary mass 3. Dyspnea Patient condition Stable Plan: continue current care, patient continues to require IV antibiotics given progression of pneumonia on outpatient therapy. Fluid bolus today given her low blood pressure and we will hold her lisinopril. Recheck chest x-ray. This inpt stay is expected to cross 2 MNs from start of care Yes at 0824
--- NOTE | 2016-11-21 08:25 | ACUTE CARE PROGRESS NOTE (QUA) ---
Progress Notes Subjective Date 11/21/16 Time 0823 Note Patient had some dyspnea episodes to the night, but feels a little better this morning. No chest pain. Edema is improved after Lasix injection yesterday. Has had some lower blood pressures through the assistant auto center manager hours. Alert. Sitting up in bed. Lungs are clear, rhonchi continue to be noted. Edema noted but obesity makes exam difficult. Pulse rate regular. Objective Findings Last VS-Temp:97.9 B/P:90/60 Pulse:83 Resp:22 SaO2:94 OXYGEN Last weight lbs:333 oz:0 K.046 Method:Floor Scales Assessment/Plan Problem List 1. Pneumonia, lobar 2. Pulmonary mass 3. Dyspnea Patient condition Stable Plan: continue current care, patient continues to require IV antibiotics given progression of pneumonia on outpatient therapy. Fluid bolus today given her low blood pressure and we will hold her lisinopril. Recheck chest x-ray. This inpt stay is expected to cross 2 MNs from start of care Yes at 0824
--- NOTE | 2016-11-21 11:02 | ACUTE CARE PROGRESS NOTE (QUA) ---
Progress Notes Subjective Date 11/21/16 Time 1101 Assessment/Plan Problem List 1. Pneumonia, lobar 2. Pulmonary mass 3. Dyspnea This inpt stay is expected to cross 2 MNs from start of care Yes Antibiotic Stewardship (2) Current Culture Results Microbiology 11/20 19 SPUTUM: Organism ID (Sequencing 2)(GONZALO) - ORD 11/20 19 SPUTUM: Sputum Culture - COMP 11/20 19 SPUTUM: Gram Stain - COMP 11/18 1255 BLOOD: Anaerobic Blood Culture - RES 11/18 1255 BLOOD: Aerobic Blood Culture - RES Infxn that will respond? Yes (UNKNOWN OF 11/21/16) Right drug,dose,and route? Yes (CULTURES NOT BACK YET) More targeted antbx? No at 1102
--- NOTE | 2016-11-21 14:01 | RADIOLOGY REPORT PS360 ---
CHEST(2 VIEWS-NOT PORTABLE) HISTORY: dyspneadyspnea previous smoker. Patient Age: 56 years: Female Ordering Physician: Dre Montgomery MD TECHNIQUE: 2 view chest. Diffuse infiltrate COMPARISON :11/14/2016, 11/18/2016 CT chest. 11/19/2016 CXR FINDINGS We again see the diffuse Right upper lobe interstitial infiltrate. It appears similar to perhaps incremental more pronounced than on the recent 11/19/2016 CXR. This latter is mainly do not believe to the less optimal inspiration. The left lung remains relatively hyperexpanded and clear. However we again see the pleural fluid which yields blunting the right posterior sulcus. This appears to be more pronounced pronounced than on. 11/19/2016 CXR. PICC line enters from the left arm with tip at, just entering SVC. IMPRESSION: . 1. persistent interstitial infiltrate throughout RUL: similar to possibly into incrementally more pronounced. However this appearance may accentuated due to the be due to the less optimal inspiration. 2. More prominent pleural fluid blunting right posterior sulcus is seen on lateral film. This this seems to be clearly more pronounced, since chest film 818. 3. Fullness right hilar & right paratracheal region again noted. Reflecting the Moderate size nodes at the right paratracheal region as seen on recent CT chest 11/18/2016.
[2016-11-22] VITALS (8 sets, daily range): BP systolic 102–119; BP diastolic 55–76
--- NOTE | 2016-11-22 08:02 | ACUTE CARE PROGRESS NOTE (QUA) ---
Progress Notes Subjective Date 11/22/16 Time 0800 Note Patient overall feels about the same, has a couple of anxiety episodes documented over the past couple of days. Lungs have rhonchi in the LEFT middle lung field but clear with a deep breath. Heart rate regular. Ankle edema based on her obesity noted. Patient's in good spirits. Objective Findings Last VS-Temp:97.4 B/P:108/74 Pulse:84 Resp:20 SaO2:92 OXYGEN Last weight lbs:333 oz:0 K.046 Method:Floor Scales Assessment/Plan Problem List 1. Pneumonia, lobar 2. Pulmonary mass 3. Dyspnea Patient condition Improving Plan: continue current care, continues to require IV antibiotics. We will look for skilled placement. Pulmonary consultation tomorrow for her abnormal CT scan and possible need for bronchoscopy. BuSpar for anxiety. This inpt stay is expected to cross 2 MNs from start of care Yes Antibiotic Stewardship (2) Infxn that will respond? Yes (UNKNOWN OF 11/21/16) Right drug,dose,and route? Yes (CULTURES NOT BACK YET) More targeted antbx? No at 0802
[2016-11-23] VITALS (21 sets, daily range): BP systolic 97–129; BP diastolic 52–88
[2016-11-23 06:57] LABS: HEMOGLOBIN 8.6 g/dL (12.2-16.2); LYMPH # 0.7 K/mm3 (0.7-4.5); LYMPH % 7.9 % (10-50.0)
--- NOTE | 2016-11-23 08:25 | ACUTE CARE PROGRESS NOTE (QUA) ---
Progress Notes Subjective Date 11/23/16 Time 0730 Note Patient continues to have shortness of breath with exertion which is exacerbating her anxiety. Alert and oriented x3. Rate and rhythm regular. Lymphedema BLE from her obesity. Pulses 1+ bilaterally. Lung sounds with rhonchi left middle lobe with scattered wheezes. Abdomen, obese, soft, non-tender. Patient/family reports: feeling better Nursing reports: no complaints Objective Findings Last VS-Temp:98.0 B/P:113/67 Pulse:100 Resp:20 SaO2:93 OXYGEN Last weight lbs:333 oz:0 K.046 Method:Floor Scales Reviewed: medications, vital signs, lab results, radiology report Assessment/Plan Problem List 1. Pneumonia, lobar 2. Pulmonary mass 3. Dyspnea 4. Anemia Patient condition Improving Plan: See above This inpt stay is expected to cross 2 MNs from start of care Yes Comments: Transfuse with 2 units of PRBC as her shortness of breath may be partially related to her anemia. Continue IV antibiotics. Consult pulmonology. Will consider d/c to [facility] tomorrow pending pulmonology consult. Antibiotic Stewardship (2) Infxn that will respond? Yes (UNKNOWN OF 11/21/16) Right drug,dose,and route? Yes (CULTURES NOT BACK YET) More targeted antbx? No at 0831
[2016-11-23 08:27] LABS: NEUTROPHILS 71 % (42-76)
[2016-11-23 10:11] LABS: ABO BLOOD TYPE O; RH BLOOD TYPE POSITIVE
[2016-11-23 10:36] LABS: ANTIHUMAN GLOB CROSSMATCH COMPAT
--- NOTE | 2016-11-23 14:41 | CONSULT NOTE ---
Standard Demographics Patient Demo Date of Consultation: 11/23/16 Referring Provider: Dre Montgomery MD Reason for Consultation: Unresolved pneumonia PRIMARY DIAGNOSIS: PNEUMONIA Allergies: Coded Allergies: gabapentin (From Neurontin) (04/01/15) magnesium (04/01/15) sulfamethoxazole (From Bactrim) (04/01/15) trimethoprim (From Bactrim) (04/01/15) History of present illness: History of present illness: Ms. Renteria is a 56-year-old woman with a significant past history of multiple sclerosis receiving Betaseron, a remote history of multiple pulmonary emboli on chronic warfarin therapy and closure of a patent foramen ovale who developed increasing shortness of breath and cough in in late October associated with abnormal breath sounds. She presumably had pneumonia and was treated with a couple of courses of antibiotics without improvement. A CT scan of the chest on November 10 demonstrated a patchy infiltrate in the RIGHT upper lobe and possible narrowing of the RIGHT upper lobe bronchus. She was admitted a few days later and has been in the hospital for the last 11 days receiving antibiotics without much improvement. She is still quite breathless with any movement and "I panic" when she sits up. She still has a cough but it is essentially nonproductive. She 's had no central chest pain and no hemoptysis. She's had no fever. At the time of admission, she was discovered to be quite anemic and upper endoscopy confirmed peptic ulcer and evidence of gastritis. She's been treated conservatively with a proton pump inhibitor and transfusions. Warfarin has been stopped. Because of persistent dyspnea, a ventilation perfusion lung scan was performed which was read as showing low probability for pulmonary embolism. This was performed instead of a CT PE protocol because of an elevated creatinine and the history of diabetes. I should mention that she is unaware that she has diabetes. Past medical history: Family HX Diabetes Yes CAD Yes Hypertension Yes Hyperlipidemia No Cancer No TB No Immunization HX Ped.Immunizations UTD Yes DT/Tetanus Unknown Flu [id number] Flu Season Pneumonia Received In Past Other Not Verified R/T Pt Cond. Rec'd Unknown TB Test in last year No Result Unknown General CAD? No Angina: No [place]: No Hypertension? Yes Hyperlipidemia? No CHF? No COPD? No Asthma? No Gastric ulcers? Yes GI Bleed? Yes Hernia? No CVA? No Seizures? No Diabetes? Yes UTI? No Stones? No GB Disease: Yes Hepatitis? No Sickle Cell Disease? No Cataracts? No Glaucoma? No MRSA? No TB? No Cancer? No More? Yes Additional hx: MS Past Surgical HX Previous Surgery?Y UTERINE ABLATION TOTAL HYSTERECTOMY LEFT ELBOW Current home meds: Active Scripts Levofloxacin (Levaquin 750mg) 750 MG PO DAILY #5 TAB Prov: 11/16/16 Pantoprazole Sodium (Protonix 40MG TAB) 40 MG PO BID #60 TAB Prov: 11/16/16 Reported Medications Metoprolol Succinate Xl (Metoprolol ER 50MG) 50 MG PO 1700 Sitagliptin Phosphate (Januvia 25MG) 25 MG PO DAILY-DM Allopurinol 100 MG PO DAILY ERGOCALCIFEROL (VITAMIN D2) (Vitamin D2) 50,000 IUNITS PO QTHUR Interferon Beta-1B (Betaseron) 0.3 MG SC QOD #14 MG Lisinopril 10 MG PO DAILY #30 Discontinued Reported Medications Naproxen Sodium (Aleve) 220 MG PO PRN PRN PAIN Furosemide 40 MG PO DAILY #30 DC: 11/16/16 1347 Warfarin Sodium 5 MG PO DAILY #30 DC: 11/16/16 1346 PRAMIPEXOLE DI-HCL (Pramipexole Dihydrochloride) 0.75 MG PO DAILY #30 DC: 11/16/16 1346 Potassium Chloride (POTASSIUM CHLORIDE 10mEq CAP) 10 MEQ PO DAILY #60 DC: 11/16/16 1347 Social Hx: Pt is a non-smoker Patient uses alcohol never Patien't marital status is single Patient's support system is fair Pt uses illicit drugs? No Exam: Lab data for last 24 hours: Laboratory Tests 11/23/16 1213: POC Glucose 232 H 11/23/16 1105: Misc Test Units BLOOD UNIT RELEASE 11/23/16 0838: Antibody Screen NEGATIVE, Miscellaneous Test POSITIVE 11/23/16 0620: POC Glucose 173 H 11/23/16 0615: WBC 9.1, RBC 2.47 L, Hgb 8.6 L, Hct 25.8 L, MCV 104.6 H, RDW 23.5 H, Plt Count 55 L, MPV 11.5 H, Gran % 85.4 H, Gran # 7.8, Total Counted 100, Lymphocytes % 7.9 L, Monocytes % 5.6, Eosinophils % 0.7, Basophils % 0.4, Neutrophils 71, Band Neutrophils 4, Lymphocytes (Manual) 20, Lymphocytes # 0.7, Monocytes (Manual) 4, Monocytes # 0.5, Eosinophils # 0.1, Eosinophils # (Manual) 1, Basophils # 0.0, Platelet Estimate MOD DECREASE, Anisocytosis 2+, Macrocytosis 1+, Schistocytes 1+, PUBS MCHC 33.1, MCH 34.7 H 11/22/16 2048: POC Glucose 211 H 11/22/16 1617: POC Glucose 232 H Admission vital signs: 1ST Vital Signs Result Date Time Pulse Ox 96 11/18 1209 O2 Delivery ROOM AIR 11/18 1209 B/P 106/56 11/18 1209 Temp 98.2 11/18 1209 Pulse 82 11/18 1209 Resp 20 11/18 1209 O2 Flow Rate 2 11/18 1220 Since hospitalization, she has required oxygen at 2.5 L/m to maintain saturation at 93 percent. Additional information: Ms. Renteria is a morbidly obese, acutely ill-appearing woman who is sitting in a chair at a 70 degrees elevation wearing oxygen at 2.5 L/m. She appears breathless and conversation but he is quite anxious. She is alert and oriented. HEENT: Sclerae clear; conjunctivae pink; external nares show no lesions; oropharynx is unremarkable and is Mallampati II. Neck: No obvious adenopathy or JVD. Chest: Symmetrical expansion; prolonged expiration on the RIGHT with scattered inspiratory and expiratory wheezes there.No obvious crackles. Heart: Regular rhythm and the pulse was about 100 when I examined her. Abdomen: Quite protuberant; bowel sounds diminished; soft and nontender and no obvious masses. Skin: No rash. Extremities: Trace edema. Plan: Problem List 1. Pneumonia, lobar 2. Pulmonary mass 3. Dyspnea 4. Anemia Plan: Ms. Renteria has developed an acute respiratory tract infection complicated by acute respiratory failure which has been quite prolonged. In my review of the CT scan of the chest there may be some narrowing of the upper lobe bronchus on the RIGHT and possibly adenopathy on the RIGHT but there is no contrast with the CT and I cannot be sure. She has not improved despite antibiotics since admission and I think it's appropriate to try to determine exactly what is causing her pulmonary infiltrate and suggest bronchoscopy. I will transfer her to the [facility] for further evaluation and management. Thank you for the opportunity to participate in Ms. Renteria's care. at 1482
[2016-11-23 20:00] LABS: HEMOGLOBIN 11.6 g/dL (12.2-16.2)
--- NOTE | 2016-11-27 09:33 | DISCHARGE SUMMARY STANDARD ---
Demographics Admit date: 11/18/16 Discharge date: 11/23/16 History of present illness History of present illness Ms. Renteria is a 56-year-old woman with a significant past history of multiple sclerosis receiving Betaseron, a remote history of multiple pulmonary emboli on chronic warfarin therapy and closure of a patent foramen ovale who developed increasing shortness of breath and cough in in late October associated with abnormal breath sounds. She presumably had pneumonia and was treated with a couple of courses of antibiotics without improvement. A CT scan of the chest on November 10 demonstrated a patchy infiltrate in the RIGHT upper lobe and possible narrowing of the RIGHT upper lobe bronchus. She had been home after initial improvement with antibiotic therapy, but came to see me in my office on November 18. She was tired, fatigued, pale and short of air. She was readmitted to the hospital because of failure of improvement on outpatient antibiotics. Hospital Course Hospital Course: Patient was admitted to hospital, Pseudomonas double coverage was restarted, and CT scan once again confirmed worsening nodular opacities around the original infiltrate. Concern for postobstructive pneumonia versus recurrent pulmonary embolism was entertained. Broad-spectrum IV antibiotics were started, oxygen supplementation was given. Pulmonary consultation was obtained. VQ scanning showed low probability of pulmonary embolism and given her recent history of GI bleeding she was not placed on DVT prophylaxis and her warfarin was not restarted. She did not require transfusion as her hemoglobin levels were above 9. She continued to have worsening shortness of air. pulmonary consultation noted, appreciated. Arrangements were made to transfer patient to for bronchoscopy to evaluate this worsening lung nodule/mass. However, patient on the night of scheduled transfer suffered a respiratory arrest culminating in asystole. In spite of aggressive resuscitative measures by our cardiac arrest team the patient at 2019 on November 23. Cause of is lung mass, probable malignancy, exacerbated by recent pneumonia and her underlying multiple sclerosis and morbid obesity. Discharge diagnoses Problem List 1. Pneumonia, lobar 2. Pulmonary mass 3. Dyspnea 4. Anemia Medications Medications: Discharge meds are as noted. Follow up Follow up in office in: 1 DAY with: OTHER at [id number]
== END 2016-11-24 02:03 | disposition expired | DRG 194 ==
LOC: 2ND 10:51
PROVIDERS: Internal Medicine Adolescent Medicine
DX: J18.9 Pneumonia, unspecified organism (principal); I27.82 Chronic pulmonary embolism; R09.2 Respiratory arrest; C34.90 Malignant neoplasm of unspecified part of unspecified bronchus or lung; D64.9 Anemia, unspecified; I10 Essential (primary) hypertension; Z79.01 Long term (current) use of anticoagulants; G35 Multiple sclerosis
CPT/HCPCS: A9540; A9567; C1751; J2543; P9016